=== PATIENT | female | born 1950 | race African-American/Black ===

== ENCOUNTER 2020-02-29 12:54 | Inpatient (IN) | payer MEDICARE, MEDICAID ==
[~2020-02-29] VITALS: Ht 157.5 cm; Wt 67.3 kg
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
[2020-02-29 13:10] VITALS: BP 123/58
--- NOTE | 2020-02-29 13:29 | Emergency Room Report ---
History of Present Illness General Chief Complaint: Abnormal Labs Source: Patient Present Illness HPI 69-year-old -[place] female with past medical history of COPD not on home O2 referred by PMD Dr. Martinez ([phone]) for abnormal labs. Is complaining of generalized weakness. Patient is a poor historian but she states that she was told by her doctor that she had a high potassium and a high sodium. She has never experienced these electrolyte abnormalities in the past. She reports muscle cramping and fatigue. Denies chest pain, palpitations, shortness of breath, hemoptysis, nausea, vomiting, diarrhea, dyspnea on exertion , fever or other symptoms. She states she has a chronic COPD cough and has 1 today. It is dry. The patient's symptoms were gradual onset, severity was moderate, duration since 2 days. Quality: Fatigue Past medical history: COPD Past surgical history: Denies Smokin cigarette/day Alcohol use: Occasional Drug use: Denies Review of systems: CONST: No fevers or chills, No night sweats PULMONARY: No productive cough, No shortness of breath CARDIAC: No chest pain, No palpitations GI: No vomiting, No diarrhea , No melena_or_BRBPR : No dysuria, No hematuria, No discharge NEURO: No new_focal_weakness_or_numbness, No confusion, No vision changes 14 point Review of Systems is otherwise negative except per HPI Physical Exam: GENERAL: Awake_alert_ nontoxic, no acute distress Spo2 98% on RA -normal EYES: Extraocular muscles are intact. Conjunctivae clear. Lids without swelling ENT: External nose and ear normal_in_appearance. Oropharynx clear. Head_ atraumatic, Moist_oral_mucosa NECK: No JVD. No meningismus. No thyromegaly. Supple. Trachea midline RESP: Normal respiratory effort. Symmetric rise. No stridor. Clear_to_ auscultation_No_rales_No_wheezes CARDIAC: Regular rate and regular rhytm. No_significant pedal edema. ABDOMEN: Soft. Nondistended. Nontender_No_rebound_or_guarding. MSK: Normal muscle tone, without rigidity. Extremities without asymmetric deformity or swelling. SKIN: Warm and dry. No visible cyanosis or pallor NEUROLOGIC: Alert, oriented x3. Motor_and_sensation_grossly_intact. No truncal ataxia. Gait_normal Psych: Normal mood and affect, normal judgment and insight - COORDINATION OF CARE Case was discussed with: Patient , Patient's Physician Any labs and imaging that were ordered were interpreted as part of the medical decision making: Medical Decision Making/Plan: Initial Assessment: Differential diagnosis includes Hyperkalemia, arrhythmia, acidosis, fluid overload, uremia, among others. I paged Dr Martinez to discuss case with him directly since patient is a poor historian. He states that patient has had ESTEBAN and hyperkalemia on recent outpatient laboratory studies. States he would like to admit the patient for further work- up. The patient feels generally weak but has no focal neurologic deficits, abnormal muscle tone, hypo/hyperreflexia, or fatigability. No evidence of stroke, spinal cord emergency, neuromuscular junction disorder, or multiple sclerosis at this time. Labs show no significant abnormalities. The patient appears well hydrated and has normal vitals, no evidence of significant dehydration / hypovolemia at this time. I spoke with Dr. Martinez, and reviewed the patients presentation, workup, results , and treatment. Dr Lopez paged to Dr Martinez for neuro follow up. Pt has no focal deficit or CVA symptomatology. They will admit the patient for further care and evaluation, and assume care of the patient at this time. Allergies: Coded Allergies: CODEINE (Verified Allergy, Unknown, 02/29/20) COVID-19 Screening Contact w/high risk pt: No Experienced COVID-19 symptoms?: No COVID-19 Testing performed ZOOKEEPER: No Patient History Last Menstrual Period: na Nursing Documentation-[facility] Past Medical History: No History, Except For Hx Hypertension: Yes Physical Exam Vital Signs Date Time Temp Pulse Resp B/P (MAP) Pulse Ox O2 Delivery O2 Flow Rate FiO2 02/29/20 13:01 97.5 91 17 125/50 (75) 97 Room Air Sp02 EP Interpretation: reviewed, normal Medical Decision Making Diagnostic Impression: Primary Impression: Weakness Additional Impression: COPD (chronic obstructive pulmonary disease) EKG Diagnostic Results PA Scribe Text 12-lead EKG (interpreted by me) Time: 1335 Indication: Rhythm analysis Tracing visualized and Interpreted by me. Rhythm: Normal sinus rhythm Rate: 74 bpm QTc: 408 Morphology: No_significant_ST_elevations_or_depressions, No STEMI Impression: Normal_sinus_rhythm_without_significant_abnormality T wave inversions in lead V4, V5, V6, nonspecific ST changes in lead V2 and V3 but no STEMI Rhythm Strip Diag. Results Rhythm Strip Time: 13:26 EP Interpretation: yes Rhythm: NSR, no PVC's, no ectopy Chest X-Ray Diagnostic Results Chest X-Ray Diagnostic Results : MARGUERITE Frankel Text XRAY Chest 1v Indication: Cough Technique: One view of the chest Findings: There are minimal atelectatic changes at both lung bases. Lungs and pleural spaces are clear otherwise. Heart size is normal. Impression: No acute process Read by Me Last Vital Signs Date Time Temp Pulse Resp B/P (MAP) Pulse Ox O2 Delivery O2 Flow Rate FiO2 02/29/20 13:10 97.9 81 18 123/58 98 Room Air Disposition: ADMITTED INPATIENT Admit Decision Time: 13:41 Condition: Stable Laila Johnson D.O. Feb 29, 2020 13:29
--- NOTE | 2020-02-29 13:47 | NUR ---
ED Nurse Note: xray @ bedside
[2020-02-29 13:51] LABS: BASOPHILS % (AUTO) 2.1 % (0.0-2.0); EOSINOPHILS % (AUTO) 2.7 % (0.0-3.0); HEMATOCRIT 44.8 % (37.0-47.0); HEMOGLOBIN 14.1 G/DL (12.0-16.0); LYMPHOCYTES % (AUTO) 46.4 % (20.0-45.0); MEAN CORPUSCULAR VOLUME 84 FL (80-99); MONOCYTES % (AUTO) 10.8 % (1.0-10.0); PLATELET COUNT 189 K/UL (150-450); RED BLOOD COUNT 5.32 M/UL (4.20-5.40); RED CELL DISTRIBUTION WIDTH 12.4 % (11.6-14.8); WHITE BLOOD COUNT 4.6 K/UL (4.8-10.8)
--- NOTE | 2020-02-29 13:59 | NUR ---
ED Nurse urine sent to lab
--- NOTE | 2020-02-29 14:00 | NUR ---
ED Nurse Note: Dr. Martinez @ bedside
[2020-02-29 14:04] LABS: ANION GAP 7 mmol/L (5-15); BLOOD UREA NITROGEN 14 mg/dL (7-18); CALCIUM 9.5 MG/DL (8.5-10.1); CARBON DIOXIDE 30 MMOL/L (21-32); CHLORIDE 105 MMOL/L (98-107); POTASSIUM 4.3 MMOL/L (3.5-5.1); SODIUM 142 MMOL/L (136-145)
[2020-02-29 14:09] LABS: ALANINE AMINOTRANSFERASE 29 U/L (12-78); ALBUMIN 3.7 G/DL (3.4-5.0); ALBUMIN/GLOBULIN RATIO 1.2 (1.0-2.7); ALKALINE PHOSPHATASE 44 U/L (46-116); ASPARTATE AMINO TRANSFERASE 27 U/L (15-37); BILIRUBIN,TOTAL 0.4 MG/DL (0.2-1.0)
--- NOTE | 2020-02-29 14:10 | Diagnostic Imaging Report ---
Indication: Cough Technique: One view of the chest Comparison: none Findings: There are minimal atelectatic changes at both lung bases. Lungs and pleural spaces are clear otherwise. Heart size is normal. Impression: No acute process
[2020-02-29 14:13] LABS: APPEARANCE,URINE CLEAR; BILIRUBIN, URINE NEGATIVE (NEGATIVE); COLOR,URINE PALE YELLOW; GLUCOSE, URINE (UA) NEGATIVE (NEGATIVE); KETONES,URINE NEGATIVE (NEGATIVE); LEUKOCYTE ESTERASE ,URINE NEGATIVE (NEGATIVE); NITRITE,URINE NEGATIVE (NEGATIVE); PH,URINE 6 (4.5-8.0); PROTEIN,URINE NEGATIVE (NEGATIVE); UROBILINOGEN,URINE NORMAL MG/DL (0.0-1.0)
[2020-02-29] MEDS ORDERED: D5 1/2NS 1000ml IV ONE (14:13)
--- NOTE | 2020-02-29 14:16 | NUR ---
Note loyd in EDM - 02/29/20 at 1619 by HÉCTOR ED Nurse Note: pt transferred safely to 2E on the monitor. Pt SR, in stable condition. All belongings sent with patient.
[2020-02-29] MEDS: Morphine Sulfate 2mg/ml Inj(IV/IM USE ONLY) IVP PRN ×2 (15:40→20:11)
--- NOTE | 2020-02-29 15:42 | NUR ---
ED Nurse Note: telephone order received frmo Dr. Martinez for morphine 2mg IVP q4hr prn for pain. Order noted and carried out. Per Dr. Martinez, have admitting RN contact Dr. Jain for admitting orders.
--- NOTE | 2020-02-29 15:44 | History and Physical Report ---
DATE OF ADMISSION: 02/29/2020 TIME SEEN: Approximate time is 2 p.m. CHIEF COMPLAINT: 1. Back pain and leg pain. 2. Abnormal renal function. BRIEF HISTORY: This is a 69-year-old female who comes to my office once in a month or so complaining of back pain. Actually back pain is going on for 6 months, leg pain worse for the past week. Home arvind did her labs which showed potassium is elevated. The patient came to [place], being seen for above. Currently in the ER daniel, no complaint otherwise. REVIEW OF SYSTEMS: No chest pain. No shortness of breath. No nausea, vomiting, or diarrhea. PAST MEDICAL HISTORY: Includes hypertension, COPD, ETSEBAN, back pain. PAST SURGICAL HISTORY: Back surgery in 1989. MEDICATIONS: Just IV fluids for now. ALLERGIES: Codeine. SOCIAL HISTORY: Positive smoking. Occasional alcohol. No intravenous drug abuse. Positive marijuana. FAMILY HISTORY: Noncontributory. PHYSICAL EXAMINATION: GENERAL: Calm in bed, oriented x3, no acute distress. VITAL SIGNS: Temperature 97, pulse 81, respirations 18, blood pressure 123/58. CARDIOVASCULAR: No murmur. LUNGS: Distant and clear. ABDOMEN: Bowel sound positive. Nontender. Nondistended. EXTREMITIES: No cyanosis or edema. NEUROLOGIC: The patient moves all extremities, slightly weak. LABORATORY DATA: Labs at this time show CBC white count 4.6, otherwise CBC is normal. BMP is pending. INR is pending. ASSESSMENT: 1. Back pain and leg pain. 2. Hypertension. 3. COPD. 4. ESTEBAN. PLAN: 1. We will check labs 2. Resume home medications. 3. Blood pressure and pain control. 4. PT and OT. 5. Dietary followup. 6. We will continue to follow the patient. 7. ER doctor to notify me of lab results. Yandel Martinez D.O. DR: Scott JOB#: [id number] CC:
--- NOTE | 2020-02-29 15:48 | NUR ---
ED Nurse Note: report given DOM Saldaña on 2E.
[2020-02-29 16:00] VITALS: BP 144/79
--- NOTE | 2020-02-29 16:16 | NUR ---
ED Nurse Note: pt transferred safely to 2E on the monitor. Pt SR, in stable condition. All belongings sent with patient.
--- NOTE | 2020-02-29 16:59 | NUR ---
NEW ADMISSION: Pt arrived to the floor at [address] [facility] Martinez and Dx; Gen weakness. Pt ambulated from [facility] to the bed with slight difficulty. telemetry monitor was placed on pt and is showing as SR. Pt is AOx4 and able to follow command. Pt is on room air with O2 sat 100% respirations are even and unlabored, no sign of sob or resp distress. Pt has IV to left FA 20g running ordered IVF D51/2NS@50/hr. Admitting orders recvd from Dr Martinez, called Dr Jain to notify him neuro consult has been ordered and pending. Bed in lowest locked position, call light within reach, will continue with plan of care
[2020-02-29] MEDS: D5 1/2NS 1,000 ML IV SCH (17:00)
[2020-02-29] MEDS ORDERED: Gadavist 7.5mMol/7.5ml vial IV PRN ×2 (17:45)
[2020-02-29 20:00] VITALS: BP 148/75
--- NOTE | 2020-02-29 20:00 | NUR ---
NURSE NOTES: Important Events on Shift:Upcoming MRI spine Patient Status: Stable, AxOx4 Diet: Regular Pending Orders: None Pending Results/Labs:CBC, CRP, BMP Pending MD notification: None Latest Vital Signs: Temperature 98.0 , Pulse 60 , B/P 148 /75 , Respiratory Rate 18 , O2 SAT 98 , Room Air, O2 Flow Rate . Vital Sign Comment: stable EKG Rhythm: SR w/ BBBs, A-paced Rhythm change?: N MD Notified?: - MD Response: Latest Hernandez Fall Score: 20 Fall Risk: Low Risk Safety Measures: Call light Within Reach, Bed Alarm Zone 2, Side Rails Side Rails x2, Bed position Low and Locked. Fall Precautions: Yellow Socks Yes Yellow Gown YES Door Sign YES Received report from Piper Aceves RN. Pt c/o 02/11 back pain, otherwise VS WNL. Morphine 2mg given per MD order, will monitor for effectiveness. Will continue plan of care and close monitoring.
[2020-03-01] VITALS: BP 131/70
[2020-03-01] MEDS: Morphine Sulfate 2mg/ml Inj(IV/IM USE ONLY) IVP PRN ×5 (01:13→20:57)
[2020-03-01 04:00] VITALS: BP 136/60
[2020-03-01 06:39] LABS: BASOPHILS % (AUTO) 1.2 % (0.0-2.0); EOSINOPHILS % (AUTO) 4.1 % (0.0-3.0); HEMATOCRIT 41.5 % (37.0-47.0); HEMOGLOBIN 13.4 G/DL (12.0-16.0); MEAN CORPUSCULAR VOLUME 84 FL (80-99); MONOCYTES % (AUTO) 11.8 % (1.0-10.0); NEUTROPHILS % (AUTO) 28.9 % (45.0-75.0); PLATELET COUNT 180 K/UL (150-450); RED BLOOD COUNT 4.95 M/UL (4.20-5.40); RED CELL DISTRIBUTION WIDTH 12.2 % (11.6-14.8); WHITE BLOOD COUNT 3.9 K/UL (4.8-10.8)
--- NOTE | 2020-03-01 06:52 | NUR ---
NURSE HAND-OFF REPORT: Important Events on Shift: Upcoming MRI spine.Pt c/o 02/11 low back pain; Morphine 2mg IVP given x 3, last dose: 0545. Patient Status: stable throughout shift. Diet: regular Pending Orders: none Pending Results/Labs: CBC, CRP, BMP Pending MD notification: none Latest Vital Signs: Temperature 98.1 , Pulse 73 , B/P 136 /60 , Respiratory Rate 18 , O2 SAT 95 , Room Air, O2 Flow Rate . Vital Sign Comment: stable throughout shift. EKG Rhythm: Sinus Rhythm Rhythm change?: N MD Notified?: - MD Response: Latest Hernandez Fall Score: 20 Fall Risk: Low Risk Safety Measures: Call light Within Reach, Bed Alarm Zone 2, Side Rails Side Rails x2, Bed position Low and Locked. Fall Precautions: Yellow Socks YES Yellow Gown YES Door Sign YES Report to be given to Lidia Guerrero RN.
[2020-03-01 07:19] LABS: ANION GAP 4 mmol/L (5-15); BLOOD UREA NITROGEN 10 mg/dL (7-18); CALCIUM 9.3 MG/DL (8.5-10.1); CARBON DIOXIDE 31 MMOL/L (21-32); CHLORIDE 108 MMOL/L (98-107); CREATININE 0.9 MG/DL (0.55-1.30); POTASSIUM 5.1 MMOL/L (3.5-5.1); SODIUM 143 MMOL/L (136-145)
--- NOTE | 2020-03-01 07:36 | NUR ---
NURSE NOTES: Report received from Cynthia FERNANDES. Pt in bed reading. Bed low and locked. Complains of general body pain especially in legs and back. Next morphine dose due at 8:45 will supply if needed. Whiteboard updated. call light within reach.
[2020-03-01 08:00] VITALS: BP 140/74
--- NOTE | 2020-03-01 09:10 | NUR ---
CASE MANAGEMENT: INITIAL REVIEW 69 YO F PRESENTED TO ED FROM MDs OFFICE CC: BACK PAIN AND GEN WEAKNESS PMHx: COPD SI:GEN WEAKNESS VS: T 97.9 HR 81 RR 18 B/P 123/58 SATS 98% ON RA LABS: WBC 4.6 ALP 44 IS: CXR Impression: No acute process PATIENT ADMITTED TO TELE 02/29/2020 @ 1412 DCP: HOME W/ HH PLAN OF CARE: Blood pressure and pain control. PT and OT.
--- NOTE | 2020-03-01 09:55 | General Progress Note ---
Assessment/Plan Problem List: (1) HTN (hypertension) ICD Codes: I10 - Essential (primary) hypertension SNOMED: 37071692 (2) Leukopenia ICD Codes: D72.819 - Decreased white blood cell count, unspecified SNOMED: 79317395, 578413557 (3) COPD (chronic obstructive pulmonary disease) ICD Codes: J44.9 - Chronic obstructive pulmonary disease, unspecified SNOMED: 25947404 (4) Weakness ICD Codes: R53.1 - Weakness SNOMED: 71651394 Status: stable, progressing Assessment/Plan: pt diet pain control neuro heme eval cbc bmp am Subjective Constitutional: Reports: weakness Allergies: Coded Allergies: CODEINE (Verified Allergy, Unknown, 02/29/20) All Systems: reviewed and negative except above Subjective calm in bed Objective Last 24 Hour Vital Signs Date Time Temp Pulse Resp B/P (MAP) Pulse Ox O2 Delivery O2 Flow Rate FiO2 03/01/20 08:00 97.7 71 19 140/74 (96) 96 03/01/20 08:00 59 03/01/20 04:00 98.1 73 18 136/60 (85) 95 03/01/20 04:00 63 03/01/20 01:43 97.9 03/01/20 00:00 97.9 64 18 131/70 (90) 96 02/29/20 20:46 Room Air 02/29/20 20:00 60 02/29/20 20:00 98.0 60 18 148/75 (99) 98 02/29/20 16:41 Room Air 02/29/20 16:16 98.3 71 18 129/63 99 Room Air 02/29/20 16:00 65 02/29/20 16:00 96.3 71 20 144/79 (100) 02/29/20 13:10 97.9 81 18 123/58 98 Room Air 02/29/20 13:01 97.5 91 17 125/50 (75) 97 Room Air Intake and Output 02/29/20 03/01/20 19:00 07:00 Intake Total 380 ml 350 ml Output Total 2600 ml Balance -2220 ml 350 ml Intake Oral 280 ml IV Total 100 ml 350 ml Output Urine Total 2600 ml # Voids 8 3 Laboratory Tests 02/29/20 13:35: White Blood Count 4.6L, Red Blood Count 5.32, Hemoglobin 14.1, Hematocrit 44.8, Mean Corpuscular Volume 84, Mean Corpuscular Hemoglobin 26.5L, Mean Corpuscular Hemoglobin Concent 31.5L, Red Cell Distribution Width 12.4, Platelet Count 189, Mean Platelet Volume 7.1, Neutrophils (%) (Auto) 38.0L, Lymphocytes (%) (Auto) 46.4H, Monocytes (%) (Auto) 10.8H, Eosinophils (%) (Auto) 2.7, Basophils (%) ( Auto) 2.1H, Erythrocyte Sedimentation Rate 25, Prothrombin Time 10.7, Prothromb Time International Ratio 1.0, Activated Partial Thromboplast Time 25, Sodium Level 142, Potassium Level 4.3, Chloride Level 105, Carbon Dioxide Level 30, Anion Gap 7, Blood Urea Nitrogen 14, Creatinine 1.0, Estimat Glomerular Filtration Rate > 60, Glucose Level 93, Calcium Level 9.5, Total Bilirubin 0.4, Aspartate Amino Transf (AST/SGOT) 27, Alanine Aminotransferase (ALT/SGPT) 29, Alkaline Phosphatase 44L, Troponin I 0.000, C-Reactive Protein, Quantitative < 0.4, Total Protein 6.9, Albumin 3.7, Globulin 3.2, Albumin/Globulin Ratio 1.2, Lipase 132 02/29/20 14:00: Urine Color Pale yellow, Urine Appearance Clear, Urine pH 6, Urine Specific Emerson 1.010, Urine Protein Negative, Urine Glucose (UA) Negative, Urine Ketones Negative, Urine Blood Negative, Urine Nitrite Negative, Urine Bilirubin Negative, Urine Urobilinogen Normal, Urine Leukocyte Esterase Negative 03/01/20 05:30: White Blood Count 3.9L, Red Blood Count 4.95, Hemoglobin 13.4, Hematocrit 41.5, Mean Corpuscular Volume 84, Mean Corpuscular Hemoglobin 27.1, Mean Corpuscular Hemoglobin Concent 32.3, Red Cell Distribution Width 12.2, Platelet Count 180, Mean Platelet Volume 6.8, Neutrophils (%) (Auto) 28.9L, Lymphocytes (%) (Auto) 54.0H, Monocytes (%) (Auto) 11.8H, Eosinophils (%) (Auto) 4.1H, Basophils (%) ( Auto) 1.2, Sodium Level 143, Potassium Level 5.1, Chloride Level 108H, Carbon Dioxide Level 31, Anion Gap 4L, Blood Urea Nitrogen 10, Creatinine 0.9, Estimat Glomerular Filtration Rate > 60, Glucose Level 91, Calcium Level 9.3 Height (Feet): 5 Height (Inches): 2.00 Weight (Pounds): 142 General Appearance: alert EENT: normal ENT inspection Neck: normal alignment Cardiovascular: normal peripheral pulses, normal rate, regular rhythm Respiratory/Chest: chest wall non-tender, lungs clear, normal breath sounds Abdomen: normal bowel sounds, non tender, soft Extremities: normal inspection Edema: no edema noted Arm (L), no edema noted Arm (R), no edema noted Leg (L), no edema noted Leg (R), no edema noted Pedal (L), no edema noted Pedal (R), no edema noted Generalized Neurologic: motor weakness Skin: normal pigmentation, warm/dry Yandel Martinez DO Mar 01, 2020 09:55
--- NOTE | 2020-03-01 10:30 | NUR ---
NURSE NOTES: Pt came back from MRI, tele monitor placed, IV fluids restarted. Morphine reassessment done now since she was off unit at 9:10.
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
[2020-03-01 12:00] VITALS: BP 124/62
[2020-03-01] MEDS: D5 1/2NS 1,000 ML IV SCH (13:17)
--- NOTE | 2020-03-01 13:49 | Consultation ---
History of Present Illness General Chief Complaint: Abnormal Labs Present Illness Allergies: Coded Allergies: CODEINE (Verified Allergy, Unknown, 02/29/20) Patient History Healthcare decision maker N Resuscitation status Advanced Directive on File Physical Exam Last 24 Hour Vital Signs Date Time Temp Pulse Resp B/P (MAP) Pulse Ox O2 Delivery O2 Flow Rate FiO2 03/01/20 13:17 96.6 03/01/20 12:00 96.6 64 18 124/62 (82) 96 03/01/20 12:00 74 03/01/20 09:00 Room Air 03/01/20 08:00 97.7 71 19 140/74 (96) 96 03/01/20 08:00 59 03/01/20 04:00 98.1 73 18 136/60 (85) 95 03/01/20 04:00 63 03/01/20 00:00 97.9 64 18 131/70 (90) 96 02/29/20 20:46 Room Air 02/29/20 20:00 60 02/29/20 20:00 98.0 60 18 148/75 (99) 98 02/29/20 16:41 Room Air 02/29/20 16:16 98.3 71 18 129/63 99 Room Air 02/29/20 16:00 65 02/29/20 16:00 96.3 71 20 144/79 (100) Intake and Output 02/29/20 03/01/20 19:00 07:00 Intake Total 380 ml 350 ml Output Total 2600 ml Balance -2220 ml 350 ml Intake Oral 280 ml IV Total 100 ml 350 ml Output Urine Total 2600 ml # Voids 8 3 Laboratory Tests Test 02/29/20 14:00 03/01/20 05:30 Urine Color Pale yellow Urine Appearance Clear Urine pH 6 (4.5-8.0) Urine Specific [place] 1.010 (1.005-1.035) Urine Protein Negative (NEGATIVE) Urine Glucose (UA) Negative (NEGATIVE) Urine Ketones Negative (NEGATIVE) Urine Blood Negative (NEGATIVE) Urine Nitrite Negative (NEGATIVE) Urine Bilirubin Negative (NEGATIVE) Urine Urobilinogen Normal MG/DL (0.0-1.0) Urine Leukocyte Esterase Negative (NEGATIVE) White Blood Count 3.9 K/UL (4.8-10.8) L Red Blood Count 4.95 M/UL (4.20-5.40) Hemoglobin 13.4 G/DL (12.0-16.0) Hematocrit 41.5 % (37.0-47.0) Mean Corpuscular Volume 84 FL (80-99) Mean Corpuscular Hemoglobin 27.1 PG (27.0-31.0) Mean Corpuscular Hemoglobin Concent 32.3 G/DL (32.0-36.0) Red Cell Distribution Width 12.2 % (11.6-14.8) Platelet Count 180 K/UL (150-450) Mean Platelet Volume 6.8 FL (6.5-10.1) Neutrophils (%) (Auto) 28.9 % (45.0-75.0) L Lymphocytes (%) (Auto) 54.0 % (20.0-45.0) H Monocytes (%) (Auto) 11.8 % (1.0-10.0) H Eosinophils (%) (Auto) 4.1 % (0.0-3.0) H Basophils (%) (Auto) 1.2 % (0.0-2.0) Sodium Level 143 MMOL/L (136-145) Potassium Level 5.1 MMOL/L (3.5-5.1) Chloride Level 108 MMOL/L (98-107) H Carbon Dioxide Level 31 MMOL/L (21-32) Anion Gap 4 mmol/L (5-15) L Blood Urea Nitrogen 10 mg/dL (7-18) Creatinine 0.9 MG/DL (0.55-1.30) Estimat Glomerular Filtration Rate > 60 mL/min (>60) Glucose Level 91 MG/DL (74-106) Calcium Level 9.3 MG/DL (8.5-10.1) Hepatitis A IgM Antibody Pending Hepatitis B Surface Antigen Pending Hepatitis B Core IgM Antibody Pending Hepatitis C Antibody Pending HIV (1&2) Antibody Rapid Negative (NEGATIVE) Height (Feet): 5 Height (Inches): 2.00 Weight (Pounds): 142 Medications Current Medications Medications (Trade) Dose Ordered Sig/Torrie Route PRN Reason Start Time Stop Time Status Last Admin Dose Admin Dextrose/Sodium Chloride 1,000 ml @ 50 mls/hr Q20H IV 02/29/20 17:00 03/30/20 16:59 03/01/20 13:17 Gadobutrol (Gadavist) 7.5 mmol NOW PRN IV Radiology Procedure 02/29/20 17:45 03/04/20 17:42 Gadobutrol (Gadavist) 7.5 mmol NOW PRN IV Radiology Procedure 02/29/20 17:45 03/04/20 17:42 Morphine Sulfate (Morphine Sulfate) 2 mg Q4H PRN IVP For Pain 02/29/20 15:30 03/07/20 15:29 03/01/20 12:34 Assessment/Plan Assessment/Plan: Hematology Consultaiton TY HERNANDEZ: Yandel Martinez C: Leukopenia eval DOS 03/01/20 ID 69-year-old -F[place] female with past medical history of COPD not on home O2 referred by PMD Dr. Martinez ([phone]) for abnormal labs. Is complaining of generalized weakness. Patient is a poor historian but she states that she was told by her doctor that she had a high potassium and a high sodium. She has never experienced these electrolyte abnormalities in the past. She reports muscle cramping and fatigue. Denies chest pain, palpitations, shortness of breath, hemoptysis, nausea, vomiting, diarrhea, dyspnea on exertion , fever or other symptoms. She states she has a chronic COPD cough and has 1 today. It is dry. The patient's symptoms were gradual onset, severity was moderate, duration since 2 days. Has been seen by neurology, recs noted, to get mri of spine and heme consulted for low wbc Past medical history: COPD Past surgical history: Denies Smokin cigarette/day Alcohol use: Occasional Drug use: Denies Review of systems: CONST: No fevers or chills, No night sweats PULMONARY: No productive cough, No shortness of breath CARDIAC: No chest pain, No palpitations GI: No vomiting, No diarrhea , No melena_or_BRBPR : No dysuria, No hematuria, No discharge NEURO: No new_focal_weakness_or_numbness, No confusion, No vision changes 14 point Review of Systems is otherwise negative except per HPI Physical Exam: Vitals: reviewed General: NAD HEENT: nc, at Neck: supple Chest: clear breath sounds bilaterally Cardiovascular: RRR, no s3, s4 Abdomen: soft, nontender, nd Extremities: no cce, normal range of motion Neuro: alert and oriented Labs have been reviewed Imaging is noted Assessment and recs # Leukopenia -- multiple etiologies could be related to underlying liver disease , medication-induced, infection versus viral syndrome may be due to fact patient is , benign congentital neutropenia --> peripheral smear has been ordered and does not show significant abnormalities --> Medications have been reviewed --> Continue to monitor for improvement, trend cbc --> Hep panel and HIV have been ordered --> US abd ordered to r/o cirrhosis and hepatosplenomegaly --> reverse isolation if ANC is <2000 --> Give neupogen if ANC <1000 --< wbc 4.8-->3.9 # Generalized wealness with no focal neurologic deficits, abnormal muscle tone, hypo/hyperreflexia, or fatigability. No evidence of stroke, spinal cord emergency, neuromuscular junction disorder, or multiple sclerosis at this time. --> mri of the thoracic spine --> as per neuro --> pt/ot # Dehydration --> goal of euvolemia --> as per renal # HL --> consider statin and asa # HTN --> sbp goal <140 # Dvt ppx ambulation The timing of this note does not necessarily reflect the time of the patient was seen. Greatly appreciate consultation. Slick Herrera MD Mar 01, 2020 13:49
[2020-03-01 16:00] VITALS: BP 151/63
--- NOTE | 2020-03-01 16:30 | Diagnostic Imaging Report ---
Indication: Technique: Sagittal T1 fast spin echo, sagittal T2 fast echo, sagittal STIR, axial T1 axial T2 fast spin echo images were obtained through the thoracic spine. Pre and postcontrast axial and sagittal T1 fat-saturated images were also obtained Comparison: none Findings: Bony alignment is normal. Vertebral body heights are preserved. The disc spaces are preserved. The vertebral marrow signal is normal. Intrinsic cord signal is normal. No significant disc bulge or protrusion, spinal stenosis, or neural foraminal stenosis. No abnormal contrast enhancement is evident. Incidentally noted are bilateral renal cysts. Impression: Negative thoracic spine Incidental finding of bilateral renal cysts
--- NOTE | 2020-03-01 16:41 | Diagnostic Imaging Report ---
Indication: Reason For Exam: BK PAIN Technique: Sagittal T1, sagittal T2 PROPELLER, sagittal STIR PROPELLER, axial T2 FRFSE, axial T1, axial T2 propeller disc cut, axial and sagittal sagittal T1 fast spin echo fat saturated precontrast and postcontrast images obtained of the lumbar Comparison: none Findings: There is transitional lumbosacral anatomy. Based on the level counting image from thoracic MRI performed at the same time, the transitional segment represents L5. Posterior fusion hardware is seen bridging L3 and L4. This throws off susceptibly artifact which partially obscures these segments. There is anterior offset of L2 on L3. The remaining bony alignment is normal. The vertebral body heights are preserved. The vertebral marrow signal is normal. The conus medullaris terminates at the L1-2 level. At L2-3, there is degenerative disc narrowing. Generalized circumferential annular bulge, as well as posterior broad-based disc protrusion with a high intensity zone. This in combination with marked ligamentum flavum hypertrophy and facet hypertrophy results in severe narrowing of the spinal canal at this level, minimal AP dimension of the spinal canal 4 mm. There is moderate narrowing of the bilateral neural foramina. At L3-4, there is degenerative disc narrowing. There is what is likely a disc spacer present. No significant disc bulge or protrusion, or spinal stenosis. The neural foramina are not well visualized due to susceptibility artifact. At L4-5, there is very mild circumferential annular bulge, which does not significant compromise the spinal canal, may result in slight narrowing of the neural foramina, particularly on the left. The disc space is preserved. At L5-S1, there is narrowing of the disc. This may be degenerative or may be related to the transitional nature of the L5 segment. No significant disc bulge or protrusion, spinal stenosis, or neural foraminal stenosis. No unusual contrast enhancement is demonstrated. The included extra spinal soft tissues demonstrate bilateral renal cysts. Impression: Evidence of severe spinal stenosis at L2-3. Evidence of posterior fusion surgery as well as a disc spacer bridging L3 and L4 Multilevel degenerative changes, as detailed on a level by level basis above.
--- NOTE | 2020-03-01 19:37 | NUR ---
HAND-OFF: Report given to Glenn FERNANDES. Endorsed that per Dr. Martinez pt should be admitted as inpatient and to add lipitor 40mg and lisinopril 10mg.
--- NOTE | 2020-03-01 19:37 | NUR ---
NURSE NOTES: Patient received from Ani RN. Patient in stable condition. No s/s of distress now and no c/o pain. Alert and oriented x4. Saturating well on room air. IV Site patent and intact on Left FA 20G running D5 1/2 NS @ 50mls/hr. Patient is able to ambulate by herself. Put in orders to admit as inpatient and to add Lisinopril 10mg daily and Lipitor 40mg daily. Bed in lowest position and locked. Call light and bedside table within reach. Will continue plan of care.
[2020-03-01 20:00] VITALS: BP 139/61
--- NOTE | 2020-03-01 21:00 | NUR ---
NURSE NOTES: Patient complaining of constipation, last bowel movement on the . Informed Attending MD and received orders, verified and carried out.
[2020-03-01] MEDS: Docusate 100mg cap ORAL SCH (22:13)
[2020-03-02] VITALS: BP 141/85
[2020-03-02] MEDS: Morphine Sulfate 2mg/ml Inj(IV/IM USE ONLY) IVP PRN ×5 (01:11→22:35)
[2020-03-02 04:00] VITALS: BP 154/71
--- NOTE | 2020-03-02 07:29 | NUR ---
NURSE NOTES: Received report from Clementine/RN, Observed patient awake, eating breakfast in bed. On room air, No acute distress/SOB noted. Able to make needs known, complaining of pain, will follow up with pain med. IV site patent and intact. Bed in low position and locked, Call light within reach, Encouraged to use call light when needed. Will continue plan of care.
--- NOTE | 2020-03-02 07:32 | NUR ---
NURSE HAND-OFF REPORT: Important Events on Shift:[Notified Doctor for laxative and received orders] Patient Status: [Stable] Diet: [Regular] Pending Orders: [] Pending Results/Labs:[] Pending MD notification:[] Latest Vital Signs: Temperature 97.7 , Pulse 58 , B/P 154 /71 , Respiratory Rate 18 , O2 SAT 98 , Room Air, O2 Flow Rate . Vital Sign Comment: [] EKG Rhythm: Sinus Rhythm Rhythm change?: N MD Notified?: N - MD Response: Latest Hernandez Fall Score: 20 Fall Risk: Low Risk Safety Measures: Call light Within Reach, Bed Alarm Zone 2, Side Rails Side Rails x2, Bed position Low and Locked. Fall Precautions: Patient Fall Education Report given to [Irasema RN].
[2020-03-02 07:54] LABS: BASOPHILS % (AUTO) 2.4 % (0.0-2.0); HEMATOCRIT 44.3 % (37.0-47.0); HEMOGLOBIN 14.4 G/DL (12.0-16.0); LYMPHOCYTES % (AUTO) 50.8 % (20.0-45.0); MEAN CORPUSCULAR VOLUME 84 FL (80-99); MONOCYTES % (AUTO) 10.2 % (1.0-10.0); NEUTROPHILS % (AUTO) 32.5 % (45.0-75.0); PLATELET COUNT 179 K/UL (150-450); RED BLOOD COUNT 5.28 M/UL (4.20-5.40); RED CELL DISTRIBUTION WIDTH 12.3 % (11.6-14.8); WHITE BLOOD COUNT 4.8 K/UL (4.8-10.8)
[2020-03-02 08:00] VITALS: BP 142/60
[2020-03-02 08:05] LABS: ANION GAP 5 mmol/L (5-15); BLOOD UREA NITROGEN 8 mg/dL (7-18); CALCIUM 9.5 MG/DL (8.5-10.1); CARBON DIOXIDE 33 MMOL/L (21-32); CHLORIDE 104 MMOL/L (98-107); CREATININE 0.9 MG/DL (0.55-1.30); POTASSIUM 4.7 MMOL/L (3.5-5.1); SODIUM 141 MMOL/L (136-145)
[2020-03-02] MEDS: Docusate 100mg cap ORAL SCH ×2 (08:43→17:42)
[2020-03-02] MEDS: D5 1/2NS 1,000 ML IV SCH (08:43)
[2020-03-02] MEDS: Lisinopril 10mg tab ORAL SCH (08:43)
--- NOTE | 2020-03-02 08:48 | General Progress Note ---
Assessment/Plan Problem List: (1) HTN (hypertension) ICD Codes: I10 - Essential (primary) hypertension SNOMED: 50658912 (2) Leukopenia ICD Codes: D72.819 - Decreased white blood cell count, unspecified SNOMED: 87286430, 472997059 (3) COPD (chronic obstructive pulmonary disease) ICD Codes: J44.9 - Chronic obstructive pulmonary disease, unspecified SNOMED: 56911505 (4) Weakness ICD Codes: R53.1 - Weakness SNOMED: 27794811 Status: stable, progressing Assessment/Plan: pt diet pain control neuro heme eval cbc bmp am Subjective Constitutional: Reports: weakness Allergies: Coded Allergies: CODEINE (Verified Allergy, Unknown, 02/29/20) All Systems: reviewed and negative except above Subjective calm in bed Objective Last 24 Hour Vital Signs Date Time Temp Pulse Resp B/P (MAP) Pulse Ox O2 Delivery O2 Flow Rate FiO2 03/02/20 08:43 142/60 03/02/20 04:00 97.7 58 18 154/71 (98) 98 03/02/20 04:00 58 03/02/20 00:00 58 03/02/20 00:00 97.7 60 18 141/85 (103) 99 03/01/20 21:00 Room Air 03/01/20 20:00 61 03/01/20 20:00 97.8 91 18 139/61 (87) 99 03/01/20 17:07 96.6 03/01/20 16:00 97.6 67 19 151/63 (92) 96 03/01/20 16:00 64 03/01/20 12:00 96.6 64 18 124/62 (82) 96 03/01/20 12:00 74 03/01/20 09:00 Room Air Intake and Output 03/01/20 03/02/20 19:00 07:00 Intake Total 490 ml Balance 490 ml Intake Oral 140 ml IV Total 350 ml # Voids 3 2 Laboratory Tests 03/02/20 07:20: White Blood Count 4.8, Red Blood Count 5.28, Hemoglobin 14.4, Hematocrit 44.3, Mean Corpuscular Volume 84, Mean Corpuscular Hemoglobin 27.3, Mean Corpuscular Hemoglobin Concent 32.5, Red Cell Distribution Width 12.3, Platelet Count 179, Mean Platelet Volume 6.7, Neutrophils (%) (Auto) 32.5L, Lymphocytes (%) (Auto) 50.8H, Monocytes (%) (Auto) 10.2H, Eosinophils (%) (Auto) 4.0H, Basophils (%) ( Auto) 2.4H, Sodium Level 141, Potassium Level 4.7, Chloride Level 104, Carbon Dioxide Level 33H, Anion Gap 5, Blood Urea Nitrogen 8, Creatinine 0.9, Estimat Glomerular Filtration Rate > 60, Glucose Level 89, Calcium Level 9.5 Height (Feet): 5 Height (Inches): 2.00 Weight (Pounds): 142 General Appearance: alert EENT: normal ENT inspection Neck: normal alignment Cardiovascular: normal peripheral pulses, normal rate, regular rhythm Respiratory/Chest: chest wall non-tender, lungs clear, normal breath sounds Abdomen: normal bowel sounds, non tender, soft Extremities: normal inspection Edema: no edema noted Arm (L), no edema noted Arm (R), no edema noted Leg (L), no edema noted Leg (R), no edema noted Pedal (L), no edema noted Pedal (R), no edema noted Generalized Neurologic: responsive, motor weakness Skin: normal pigmentation, warm/dry Yandel Martinez DO Mar 02, 2020 08:48
[2020-03-02 12:00] VITALS: BP 132/61
[2020-03-02] MEDS: Milk of Magnesia 30ml Ud ORAL PRN ×2 (13:08→22:35)
[2020-03-02 16:00] VITALS: BP 132/62
--- NOTE | 2020-03-02 19:37 | NUR ---
NURSE HAND-OFF REPORT: Important Events on Shift:Pain management Patient Status: stable Diet: regular Pending Orders: NA Pending Results/Labs:Morning Labs Pending MD notification:NA Latest Vital Signs: Temperature 97.9 , Pulse 73 , B/P 132 /62 , Respiratory Rate 16 , O2 SAT 100 , Room Air, O2 Flow Rate . Vital Sign Comment: Stables EKG Rhythm: Sinus Rhythm Rhythm change?: N MD Notified?: N - MD Response: Latest Hernandez Fall Score: 20 Fall Risk: Low Risk Safety Measures: Call light Within Reach, Bed Alarm Zone 2, Side Rails Side Rails x2, Bed position Low and Locked. Fall Precautions: Patient Fall Education Report given to Ken.
--- NOTE | 2020-03-02 19:40 | NUR ---
NURSE NOTES: Received report from Irasema /RN, Observed patient awake, alert and oriented, lying semi-jay's in bed. On room air, No acute distress/SOB noted. Able to make needs known, Denies pain at this time. IV site patent and intact. Bed in low position and locked, Call light within reach, Encouraged to use call light when needed. Will continue plan of care.
[2020-03-02 20:00] VITALS: BP 138/68
[2020-03-02] MEDS: Atorvastatin 20mg tab ORAL SCH (22:32)
[2020-03-03] VITALS: BP 145/76
[2020-03-03 04:00] VITALS: BP 140/70
[2020-03-03] MEDS: Morphine Sulfate 2mg/ml Inj(IV/IM USE ONLY) IVP PRN ×4 (05:11→20:47)
[2020-03-03] MEDS: D5 1/2NS 1,000 ML IV SCH ×2 (05:11→23:41)
--- NOTE | 2020-03-03 07:01 | NUR ---
NURSE NOTES: Received report from Lisbeth/RN, Observed patient awake, lying semi-jay's in bed. On room air, No acute distress/SOB noted. Able to make needs known, Digna pain at this time. IV site patent and intact. Bed in low position and locked, Call light within reach, Encouraged to use call light when needed. Will continue plan of care.
--- NOTE | 2020-03-03 07:24 | NUR ---
NURSE HAND-OFF REPORT: Important Events on Shift: Patient Status: Diet: Pending Orders: Pending Results/Labs: Latest Vital Signs: Temperature 98.1 , Pulse 60 , B/P 140 /70 , Respiratory Rate 17 , O2 SAT 100 , Room Air, O2 Flow Rate . EKG Rhythm: Sinus Bradycardia to SR Rhythm change?: N MD Notified?: N - Latest Hernandez Fall Score: 20 Fall Risk: Low Risk Safety Measures: Call light Within Reach, Bed Alarm Zone 2, Side Rails Side Rails x2, Bed position Low and Locked. Fall Precautions: Patient Fall Education Report given to .
--- NOTE | 2020-03-03 07:25 | NUR ---
NURSE HAND-OFF REPORT: Important Events on Shift: Patient Status: stable, received pain med at 0511 Diet: regular Pending Orders: cbc bmp Pending Results/Labs:cbc bmp Latest Vital Signs: Temperature 98.1 , Pulse 60 , B/P 140 /70 , Respiratory Rate 17 , O2 SAT 100 , Room Air, O2 Flow Rate . EKG Rhythm: Sinus Bradycardia to SR Rhythm change?: N MD Notified?: N - Latest Hernandez Fall Score: 20 Fall Risk: Low Risk Safety Measures: Call light Within Reach, Bed Alarm Zone 2, Side Rails Side Rails x2, Bed position Low and Locked. Fall Precautions: Patient Fall Education Report given to Irasema FERNANDES.
[2020-03-03 07:38] LABS: EOSINOPHILS % (AUTO) 4.2 % (0.0-3.0); HEMOGLOBIN 14.5 G/DL (12.0-16.0); LYMPHOCYTES % (AUTO) 48.6 % (20.0-45.0); MEAN CORPUSCULAR VOLUME 84 FL (80-99); MONOCYTES % (AUTO) 11.1 % (1.0-10.0); PLATELET COUNT 185 K/UL (150-450); RED BLOOD COUNT 5.37 M/UL (4.20-5.40); RED CELL DISTRIBUTION WIDTH 11.9 % (11.6-14.8); WHITE BLOOD COUNT 4.3 K/UL (4.8-10.8)
--- NOTE | 2020-03-03 07:38 | Hematology/Onc Progress Note ---
Assessment/Plan Assessment/Plan Assessment and recs # Leukopenia -- multiple etiologies could be related to underlying liver disease , medication-induced, infection versus viral syndrome may be due to fact patient is , benign congentital neutropenia also HEPATITIS C++ --> peripheral smear has been ordered and does not show significant abnormalities --> Medications have been reviewed --> Continue to monitor for improvement, trend cbc --> Hep panel and HIV have been ordered --> US abd ordered to r/o cirrhosis and hepatosplenomegaly --> reverse isolation if ANC is <2000 --> Give neupogen if ANC <1000 --< wbc 4.8-->3.9-->5 # Generalized wealness with no focal neurologic deficits, abnormal muscle tone, hypo/hyperreflexia, or fatigability. No evidence of stroke, spinal cord emergency, neuromuscular junction disorder, or multiple sclerosis at this time. --> mri of the thoracic spine --> as per neuro --> pt/ot # Dehydration --> goal of euvolemia --> as per renal # HL --> consider statin and asa # HTN --> sbp goal <140 # Dvt ppx ambulation The timing of this note does not necessarily reflect the time of the patient was seen. Greatly appreciate consultation. Subjective HEENT: Denies: no symptoms, eye pain, blurred vision, tearing, double vision, ear pain, ear discharge, nose pain, nose congestion, throat pain, throat swelling, mouth pain, mouth swelling, other Cardiovascular: Denies: no symptoms, chest pain, edema, irregular heart rate, lightheadedness, palpitations, syncope, other Respiratory: Denies: no symptoms, cough, shortness of breath, SOB with excertion, SOB at rest, sputum, wheezing, other Gastrointestinal/Abdominal: Denies: no symptoms, abdomen distended, abdominal pain, black stools, tarry stools, blood in stool, constipated, diarrhea, difficulty swallowing, nausea, poor appetite, poor fluid intake, rectal bleeding , vomiting, other Genitourinary: Denies: no symptoms, burning, discharge, frequency, flank pain, hematuria, incontinence, pain, urgency, other Endocrine: Denies: no symptoms, excessive sweating, flushing, intolerance to cold, intolerance to heat, increased hunger, increased thirst, increased urine, unexplained weight gain, unexplained weight loss, other Hematologic/Lymphatic: Denies: no symptoms, anemia, easy bleeding, easy bruising, adenopathy, other Allergies: Coded Allergies: CODEINE (Verified Allergy, Unknown, 02/29/20) Subjective 03/03 labs are noted, no bleeding, in semi-fowlers position no bleeding, cbc noted Objective Objective Current Medications Medications (Trade) Dose Ordered Sig/Torrie Route PRN Reason Start Time Stop Time Status Last Admin Dose Admin Atorvastatin Calcium (Lipitor) 40 mg BEDTIME ORAL 03/02/20 21:00 05/31/20 20:59 03/02/20 22:32 Bisacodyl (Dulcolax) 10 mg BIDPRN PRN RECTAL Constipation 03/01/20 22:00 05/30/20 21:59 Dextrose/Sodium Chloride 1,000 ml @ 50 mls/hr Q20H IV 02/29/20 17:00 03/30/20 16:59 03/03/20 05:11 Docusate Sodium (Colace) 100 mg TWICE A DAY ORAL 03/01/20 22:00 03/31/20 21:59 03/02/20 17:42 Gadobutrol (Gadavist) 7.5 mmol NOW PRN IV Radiology Procedure 02/29/20 17:45 03/04/20 17:42 Gadobutrol (Gadavist) 7.5 mmol NOW PRN IV Radiology Procedure 02/29/20 17:45 03/04/20 17:42 Lisinopril (ZestriL) 10 mg DAILY ORAL 03/02/20 09:00 04/01/20 08:59 03/02/20 08:43 Magnesium Hydroxide (Mom) 30 ml Q6HR PRN ORAL Constipation 03/02/20 13:00 04/01/20 12:59 03/02/20 22:35 Morphine Sulfate (Morphine Sulfate) 2 mg Q4H PRN IVP For Pain 02/29/20 15:30 03/07/20 15:29 03/03/20 05:11 Last 24 Hour Vital Signs Date Time Temp Pulse Resp B/P (MAP) Pulse Ox O2 Delivery O2 Flow Rate FiO2 03/03/20 05:41 98.1 03/03/20 04:00 59 03/03/20 04:00 97.9 60 17 140/70 (93) 100 03/03/20 00:00 57 03/03/20 00:00 98.1 57 16 145/76 (99) 100 03/02/20 21:00 Room Air 03/02/20 20:00 62 03/02/20 20:00 97.9 64 17 138/68 (91) 100 03/02/20 16:00 73 03/02/20 16:00 97.9 62 16 132/62 (85) 100 03/02/20 12:00 60 03/02/20 12:00 97.8 61 16 132/61 (84) 97 03/02/20 09:00 Room Air 03/02/20 08:43 142/60 03/02/20 08:00 98.1 63 17 142/60 (87) 98 03/02/20 08:00 62 03/02/20 04:00 97.7 58 18 154/71 (98) 98 03/02/20 04:00 58 03/02/20 00:00 58 03/02/20 00:00 97.7 60 18 141/85 (103) 99 03/01/20 21:00 Room Air 03/01/20 20:00 61 03/01/20 20:00 97.8 91 18 139/61 (87) 99 03/01/20 16:00 97.6 67 19 151/63 (92) 96 03/01/20 16:00 64 03/01/20 12:00 96.6 64 18 124/62 (82) 96 03/01/20 12:00 74 03/01/20 09:00 Room Air 03/01/20 08:00 97.7 71 19 140/74 (96) 96 03/01/20 08:00 59 Intake and Output 03/02/20 03/03/20 19:00 07:00 Intake Total 500 ml 550 ml Balance 500 ml 550 ml Intake Oral 500 ml IV Total 550 ml # Voids 2 2 Labs Test 02/29/20 13:35 02/29/20 14:00 03/01/20 05:30 03/02/20 07:20 White Blood Count 4.6 K/UL (4.8-10.8) 3.9 K/UL (4.8-10.8) 4.8 K/UL (4.8-10.8) Red Blood Count 5.32 M/UL (4.20-5.40) 4.95 M/UL (4.20-5.40) 5.28 M/UL (4.20-5.40) Hemoglobin 14.1 G/DL (12.0-16.0) 13.4 G/DL (12.0-16.0) 14.4 G/DL (12.0-16.0) Hematocrit 44.8 % (37.0-47.0) 41.5 % (37.0-47.0) 44.3 % (37.0-47.0) Mean Corpuscular Volume 84 FL (80-99) 84 FL (80-99) 84 FL (80-99) Mean Corpuscular Hemoglobin 26.5 PG (27.0-31.0) 27.1 PG (27.0-31.0) 27.3 PG (27.0-31.0) Mean Corpuscular Hemoglobin Concent 31.5 G/DL (32.0-36.0) 32.3 G/DL (32.0-36.0) 32.5 G/DL (32.0-36.0) Red Cell Distribution Width 12.4 % (11.6-14.8) 12.2 % (11.6-14.8) 12.3 % (11.6-14.8) Platelet Count 189 K/UL (150-450) 180 K/UL (150-450) 179 K/UL (150-450) Mean Platelet Volume 7.1 FL (6.5-10.1) 6.8 FL (6.5-10.1) 6.7 FL (6.5-10.1) Neutrophils (%) (Auto) 38.0 % (45.0-75.0) 28.9 % (45.0-75.0) 32.5 % (45.0-75.0) Lymphocytes (%) (Auto) 46.4 % (20.0-45.0) 54.0 % (20.0-45.0) 50.8 % (20.0-45.0) Monocytes (%) (Auto) 10.8 % (1.0-10.0) 11.8 % (1.0-10.0) 10.2 % (1.0-10.0) Eosinophils (%) (Auto) 2.7 % (0.0-3.0) 4.1 % (0.0-3.0) 4.0 % (0.0-3.0) Basophils (%) (Auto) 2.1 % (0.0-2.0) 1.2 % (0.0-2.0) 2.4 % (0.0-2.0) Erythrocyte Sedimentation Rate 25 MM/HR (0-30) Prothrombin Time 10.7 SEC (9.30-11.50) Prothromb Time International Ratio 1.0 (0.9-1.1) Activated Partial Thromboplast Time 25 SEC (23-33) Sodium Level 142 MMOL/L (136-145) 143 MMOL/L (136-145) 141 MMOL/L (136-145) Potassium Level 4.3 MMOL/L (3.5-5.1) 5.1 MMOL/L (3.5-5.1) 4.7 MMOL/L (3.5-5.1) Chloride Level 105 MMOL/L (98-107) 108 MMOL/L (98-107) 104 MMOL/L (98-107) Carbon Dioxide Level 30 MMOL/L (21-32) 31 MMOL/L (21-32) 33 MMOL/L (21-32) Anion Gap 7 mmol/L (5-15) 4 mmol/L (5-15) 5 mmol/L (5-15) Blood Urea Nitrogen 14 mg/dL (7-18) 10 mg/dL (7-18) 8 mg/dL (7-18) Creatinine 1.0 MG/DL (0.55-1.30) 0.9 MG/DL (0.55-1.30) 0.9 MG/DL (0.55-1.30) Estimat Glomerular Filtration Rate > 60 mL/min (>60) > 60 mL/min (>60) > 60 mL/min (>60) Glucose Level 93 MG/DL (74-106) 91 MG/DL (74-106) 89 MG/DL (74-106) Calcium Level 9.5 MG/DL (8.5-10.1) 9.3 MG/DL (8.5-10.1) 9.5 MG/DL (8.5-10.1) Total Bilirubin 0.4 MG/DL (0.2-1.0) Aspartate Amino Transf (AST/SGOT) 27 U/L (15-37) Alanine Aminotransferase (ALT/SGPT) 29 U/L (12-78) Alkaline Phosphatase 44 U/L (46-116) Troponin I 0.000 ng/mL (0.000-0.056) C-Reactive Protein, Quantitative < 0.4 mg/dL (0.00-0.90) Total Protein 6.9 G/DL (6.4-8.2) Albumin 3.7 G/DL (3.4-5.0) Globulin 3.2 g/dL Albumin/Globulin Ratio 1.2 (1.0-2.7) Lipase 132 U/L (73-393) Urine Color Pale yellow Urine Appearance Clear Urine pH 6 (4.5-8.0) Urine Specific [place] 1.010 (1.005-1.035) Urine Protein Negative (NEGATIVE) Urine Glucose (UA) Negative (NEGATIVE) Urine Ketones Negative (NEGATIVE) Urine Blood Negative (NEGATIVE) Urine Nitrite Negative (NEGATIVE) Urine Bilirubin Negative (NEGATIVE) Urine Urobilinogen Normal MG/DL (0.0-1.0) Urine Leukocyte Esterase Negative (NEGATIVE) Hepatitis A IgM Antibody Negative (Negative) Hepatitis B Surface Antigen Negative (Negative) Hepatitis B Core IgM Antibody Negative (Negative) Hepatitis C Antibody >11.0 s/co ratio HIV (1&2) Antibody Rapid Negative (NEGATIVE) Test 03/03/20 05:50 Height (Feet): 5 Height (Inches): 2.00 Weight (Pounds): 147 Objective Physical Exam: Vitals: reviewed General: NAD HEENT: nc, at Neck: supple Chest: clear breath sounds bilaterally Cardiovascular: RRR, no s3, s4 Abdomen: soft, nontender, nd Extremities: no cce, normal range of motion Neuro: alert and oriented Slick Herrera MD Mar 03, 2020 07:38
[2020-03-03 07:57] LABS: ANION GAP 4 mmol/L (5-15); BLOOD UREA NITROGEN 8 mg/dL (7-18); CALCIUM 9.5 MG/DL (8.5-10.1); CARBON DIOXIDE 32 MMOL/L (21-32); CHLORIDE 104 MMOL/L (98-107); POTASSIUM 4.5 MMOL/L (3.5-5.1); SODIUM 140 MMOL/L (136-145)
[2020-03-03 08:00] VITALS: BP 147/63
--- NOTE | 2020-03-03 08:27 | General Progress Note ---
Assessment/Plan Problem List: (1) HTN (hypertension) ICD Codes: I10 - Essential (primary) hypertension SNOMED: 54878329 (2) Leukopenia ICD Codes: D72.819 - Decreased white blood cell count, unspecified SNOMED: 99557492, 618408627 (3) COPD (chronic obstructive pulmonary disease) ICD Codes: J44.9 - Chronic obstructive pulmonary disease, unspecified SNOMED: 10438330 (4) Weakness ICD Codes: R53.1 - Weakness SNOMED: 51487841 Status: stable, progressing Assessment/Plan: pt diet pain control neuro heme eval cbc bmp am dc plan if clear Subjective Constitutional: Reports: weakness Allergies: Coded Allergies: CODEINE (Verified Allergy, Unknown, 02/29/20) All Systems: reviewed and negative except above Subjective calm in bed Objective Last 24 Hour Vital Signs Date Time Temp Pulse Resp B/P (MAP) Pulse Ox O2 Delivery O2 Flow Rate FiO2 03/03/20 05:41 98.1 03/03/20 04:00 59 03/03/20 04:00 97.9 60 17 140/70 (93) 100 03/03/20 00:00 57 03/03/20 00:00 98.1 57 16 145/76 (99) 100 03/02/20 21:00 Room Air 03/02/20 20:00 62 03/02/20 20:00 97.9 64 17 138/68 (91) 100 03/02/20 16:00 73 03/02/20 16:00 97.9 62 16 132/62 (85) 100 03/02/20 12:00 60 03/02/20 12:00 97.8 61 16 132/61 (84) 97 03/02/20 09:00 Room Air 03/02/20 08:43 142/60 Intake and Output 03/02/20 03/03/20 19:00 07:00 Intake Total 500 ml 550 ml Balance 500 ml 550 ml Intake Oral 500 ml IV Total 550 ml # Voids 2 2 Laboratory Tests 03/03/20 05:50: White Blood Count 4.3L, Red Blood Count 5.37, Hemoglobin 14.5, Hematocrit 45.0, Mean Corpuscular Volume 84, Mean Corpuscular Hemoglobin 27.0, Mean Corpuscular Hemoglobin Concent 32.3, Red Cell Distribution Width 11.9, Platelet Count 185, Mean Platelet Volume 6.8, Neutrophils (%) (Auto) 34.0L, Lymphocytes (%) (Auto) 48.6H, Monocytes (%) (Auto) 11.1H, Eosinophils (%) (Auto) 4.2H, Basophils (%) ( Auto) 2.0, Sodium Level 140, Potassium Level 4.5, Chloride Level 104, Carbon Dioxide Level 32, Anion Gap 4L, Blood Urea Nitrogen 8, Creatinine 1.0, Estimat Glomerular Filtration Rate > 60, Glucose Level 96, Calcium Level 9.5, Alpha Fetoprotein [Pending] Height (Feet): 5 Height (Inches): 2.00 Weight (Pounds): 147 General Appearance: alert EENT: normal ENT inspection Neck: normal alignment Cardiovascular: normal peripheral pulses, normal rate, regular rhythm Respiratory/Chest: chest wall non-tender, lungs clear, normal breath sounds Abdomen: normal bowel sounds, non tender, soft Extremities: normal inspection Edema: no edema noted Arm (L), no edema noted Arm (R), no edema noted Leg (L), no edema noted Leg (R), no edema noted Pedal (L), no edema noted Pedal (R), no edema noted Generalized Neurologic: responsive, motor weakness Skin: normal pigmentation, warm/dry Yandel Martinez DO Mar 03, 2020 08:27
[2020-03-03] MEDS: Milk of Magnesia 30ml Ud ORAL PRN (09:19)
[2020-03-03] MEDS: Docusate 100mg cap ORAL SCH ×2 (09:19→17:37)
[2020-03-03] MEDS: Lisinopril 10mg tab ORAL SCH (09:19)
--- NOTE | 2020-03-03 10:57 | NUR ---
DISCHARGE PLANNING PATIENT REFERRED TO [facility] (Dr Thakkar) T: [phone] F: [phone] NO DC ORDER NURSE TO OBTAIN CLEARANCE FROM HEME AND NEURO Addendum: 03/04/20 at 0958 by RUTHY MANN LVN PATIENT ACCEPTED TO [facility]
[2020-03-03 12:00] VITALS: BP 142/64
[2020-03-03 16:00] VITALS: BP 138/71
--- NOTE | 2020-03-03 19:20 | NUR ---
NURSE HAND-OFF REPORT: Important Events on Shift:NA Patient Status: Stable Diet: Regular Pending Orders: NA Pending Results/Labs:Morning labs Pending MD notification:NA Latest Vital Signs: Temperature 98.1 , Pulse 61 , B/P 138 /71 , Respiratory Rate 20 , O2 SAT 100 , Room Air, O2 Flow Rate . Vital Sign Comment: Stable EKG Rhythm: Sinus Rhythm Rhythm change?: N MD Notified?: N - MD Response: Latest Hernandez Fall Score: 20 Fall Risk: Low Risk Safety Measures: Call light Within Reach, Bed Alarm Zone 2, Side Rails Side Rails x2, Bed position Low and Locked. Fall Precautions: Patient Fall Education Report given to Lisbeth/DOM.
[2020-03-03 20:00] VITALS: BP 165/84
[2020-03-03] MEDS: Atorvastatin 20mg tab ORAL SCH (20:46)
[2020-03-04] VITALS: BP 140/70
[2020-03-04] MEDS: Morphine Sulfate 2mg/ml Inj(IV/IM USE ONLY) IVP PRN ×4 (01:31→15:45)
[2020-03-04 04:00] VITALS: BP 138/73
[2020-03-04 06:59] LABS: BASOPHILS % (AUTO) 1.7 % (0.0-2.0); EOSINOPHILS % (AUTO) 3.1 % (0.0-3.0); HEMATOCRIT 44.6 % (37.0-47.0); HEMOGLOBIN 14.4 G/DL (12.0-16.0); LYMPHOCYTES % (AUTO) 45.7 % (20.0-45.0); MEAN CORPUSCULAR VOLUME 83 FL (80-99); MONOCYTES % (AUTO) 10.7 % (1.0-10.0); NEUTROPHILS % (AUTO) 38.8 % (45.0-75.0); PLATELET COUNT 178 K/UL (150-450); RED BLOOD COUNT 5.36 M/UL (4.20-5.40); WHITE BLOOD COUNT 4.2 K/UL (4.8-10.8)
--- NOTE | 2020-03-04 07:01 | NUR ---
NURSE NOTES: Received patient in bed awake. No SOB or acute distress. IV line intact. HOB elevated. Bed locked in low position. Call light within reach. On pain mgnt. Will continue plan of care.
[2020-03-04 07:04] LABS: ANION GAP 4 mmol/L (5-15); BLOOD UREA NITROGEN 7 mg/dL (7-18); CALCIUM 9.3 MG/DL (8.5-10.1); CARBON DIOXIDE 31 MMOL/L (21-32); CHLORIDE 108 MMOL/L (98-107); CREATININE 0.9 MG/DL (0.55-1.30); POTASSIUM 4.7 MMOL/L (3.5-5.1); SODIUM 143 MMOL/L (136-145)
--- NOTE | 2020-03-04 07:05 | Hematology/Onc Progress Note ---
Assessment/Plan Assessment/Plan Assessment and recs # Leukopenia -- multiple etiologies could be related to underlying liver disease , medication-induced, infection versus viral syndrome may be due to fact patient is , benign congentital neutropenia also HEPATITIS C++ --> peripheral smear has been ordered and does not show significant abnormalities --> Medications have been reviewed --> Continue to monitor for improvement, trend cbc --> Hep panel and HIV have been ordered--> hep C+++ --> US abd ordered to r/o cirrhosis and hepatosplenomegaly --> reverse isolation if ANC is <2000 --> Give neupogen if ANC <1000 --> wbc 4.8-->3.9-->5 # Generalized wealness with no focal neurologic deficits, abnormal muscle tone, hypo/hyperreflexia, or fatigability. No evidence of stroke, spinal cord emergency, neuromuscular junction disorder, or multiple sclerosis at this time. --> mri of the thoracic spine --> as per neuro --> pt/ot # Dehydration --> goal of euvolemia --> as per renal # HL --> consider statin and asa # HTN --> sbp goal <140 # Dvt ppx ambulation The timing of this note does not necessarily reflect the time of the patient was seen. Greatly appreciate consultation. Subjective Cardiovascular: Denies: no symptoms, chest pain, edema, irregular heart rate, lightheadedness, palpitations, syncope, other Respiratory: Denies: no symptoms, cough, shortness of breath, SOB with excertion, SOB at rest, sputum, wheezing, other Gastrointestinal/Abdominal: Denies: no symptoms, abdomen distended, abdominal pain, black stools, tarry stools, blood in stool, constipated, diarrhea, difficulty swallowing, nausea, poor appetite, poor fluid intake, rectal bleeding , vomiting, other Genitourinary: Denies: no symptoms, burning, discharge, frequency, flank pain, hematuria, incontinence, pain, urgency, other Neurologic/Psychiatric: Denies: no symptoms, anxiety, depressed, emotional problems, headache, numbness, paresthesia, pre-existing deficit, seizure, tingling, tremors, weakness, other Endocrine: Denies: no symptoms, excessive sweating, flushing, intolerance to cold, intolerance to heat, increased hunger, increased thirst, increased urine, unexplained weight gain, unexplained weight loss, other Allergies: Coded Allergies: CODEINE (Verified Allergy, Unknown, 02/29/20) Subjective 03/03 labs are noted, no bleeding, in semi-fowlers position no bleeding, cbc noted 03/04 labs from am are pending, hep and hiv are negative, dw rn Objective Objective Current Medications Medications (Trade) Dose Ordered Sig/Torrie Route PRN Reason Start Time Stop Time Status Last Admin Dose Admin Atorvastatin Calcium (Lipitor) 40 mg BEDTIME ORAL 03/02/20 21:00 05/31/20 20:59 03/03/20 20:46 Bisacodyl (Dulcolax) 10 mg BIDPRN PRN RECTAL Constipation 03/01/20 22:00 05/30/20 21:59 Dextrose/Sodium Chloride 1,000 ml @ 50 mls/hr Q20H IV 02/29/20 17:00 03/30/20 16:59 03/03/20 23:41 Docusate Sodium (Colace) 100 mg TWICE A DAY ORAL 03/01/20 22:00 03/31/20 21:59 03/03/20 09:19 Gadobutrol (Gadavist) 7.5 mmol NOW PRN IV Radiology Procedure 02/29/20 17:45 03/04/20 17:42 Gadobutrol (Gadavist) 7.5 mmol NOW PRN IV Radiology Procedure 02/29/20 17:45 03/04/20 17:42 Lisinopril (ZestriL) 10 mg DAILY ORAL 03/02/20 09:00 04/01/20 08:59 03/03/20 09:19 Magnesium Hydroxide (Mom) 30 ml Q6HR PRN ORAL Constipation 03/02/20 13:00 04/01/20 12:59 03/03/20 09:19 Morphine Sulfate (Morphine Sulfate) 2 mg Q4H PRN IVP For Pain 02/29/20 15:30 03/07/20 15:29 03/04/20 05:43 Last 24 Hour Vital Signs Date Time Temp Pulse Resp B/P (MAP) Pulse Ox O2 Delivery O2 Flow Rate FiO2 03/04/20 06:13 97.9 03/04/20 04:00 68 03/04/20 04:00 98.1 62 20 138/73 (94) 100 03/04/20 00:00 74 03/04/20 00:00 97.9 64 17 140/70 (93) 100 03/03/20 21:00 Room Air 03/03/20 20:00 97.9 66 16 165/84 (111) 98 03/03/20 20:00 65 03/03/20 16:00 61 03/03/20 16:00 98.1 62 20 138/71 (93) 100 03/03/20 12:00 59 03/03/20 12:00 97.4 60 20 142/64 (90) 99 03/03/20 09:19 147/63 03/03/20 09:00 Room Air 03/03/20 08:00 65 03/03/20 08:00 97.4 66 20 147/63 (91) 100 03/03/20 04:00 59 03/03/20 04:00 97.9 60 17 140/70 (93) 100 03/03/20 00:00 57 03/03/20 00:00 98.1 57 16 145/76 (99) 100 03/02/20 21:00 Room Air 03/02/20 20:00 62 03/02/20 20:00 97.9 64 17 138/68 (91) 100 03/02/20 16:00 73 03/02/20 16:00 97.9 62 16 132/62 (85) 100 03/02/20 12:00 60 03/02/20 12:00 97.8 61 16 132/61 (84) 97 03/02/20 09:00 Room Air 03/02/20 08:43 142/60 03/02/20 08:00 98.1 63 17 142/60 (87) 98 03/02/20 08:00 62 Intake and Output 03/03/20 03/04/20 19:00 07:00 Intake Total 550 ml 680 ml Balance 550 ml 680 ml Intake Oral 500 ml 280 ml IV Total 50 ml 400 ml # Voids 4 3 Labs Test 03/02/20 07:20 03/03/20 05:50 03/04/20 05:30 White Blood Count 4.8 K/UL (4.8-10.8) 4.3 K/UL (4.8-10.8) Red Blood Count 5.28 M/UL (4.20-5.40) 5.37 M/UL (4.20-5.40) Hemoglobin 14.4 G/DL (12.0-16.0) 14.5 G/DL (12.0-16.0) Hematocrit 44.3 % (37.0-47.0) 45.0 % (37.0-47.0) Mean Corpuscular Volume 84 FL (80-99) 84 FL (80-99) Mean Corpuscular Hemoglobin 27.3 PG (27.0-31.0) 27.0 PG (27.0-31.0) Mean Corpuscular Hemoglobin Concent 32.5 G/DL (32.0-36.0) 32.3 G/DL (32.0-36.0) Red Cell Distribution Width 12.3 % (11.6-14.8) 11.9 % (11.6-14.8) Platelet Count 179 K/UL (150-450) 185 K/UL (150-450) Mean Platelet Volume 6.7 FL (6.5-10.1) 6.8 FL (6.5-10.1) Neutrophils (%) (Auto) 32.5 % (45.0-75.0) 34.0 % (45.0-75.0) Lymphocytes (%) (Auto) 50.8 % (20.0-45.0) 48.6 % (20.0-45.0) Monocytes (%) (Auto) 10.2 % (1.0-10.0) 11.1 % (1.0-10.0) Eosinophils (%) (Auto) 4.0 % (0.0-3.0) 4.2 % (0.0-3.0) Basophils (%) (Auto) 2.4 % (0.0-2.0) 2.0 % (0.0-2.0) Sodium Level 141 MMOL/L (136-145) 140 MMOL/L (136-145) Potassium Level 4.7 MMOL/L (3.5-5.1) 4.5 MMOL/L (3.5-5.1) Chloride Level 104 MMOL/L (98-107) 104 MMOL/L (98-107) Carbon Dioxide Level 33 MMOL/L (21-32) 32 MMOL/L (21-32) Anion Gap 5 mmol/L (5-15) 4 mmol/L (5-15) Blood Urea Nitrogen 8 mg/dL (7-18) 8 mg/dL (7-18) Creatinine 0.9 MG/DL (0.55-1.30) 1.0 MG/DL (0.55-1.30) Estimat Glomerular Filtration Rate > 60 mL/min (>60) > 60 mL/min (>60) Glucose Level 89 MG/DL (74-106) 96 MG/DL (74-106) Calcium Level 9.5 MG/DL (8.5-10.1) 9.5 MG/DL (8.5-10.1) Height (Feet): 5 Height (Inches): 2.00 Weight (Pounds): 148 Objective Physical Exam: Vitals: reviewed General: NAD HEENT: nc, at Neck: supple Chest: clear breath sounds bilaterally Cardiovascular: RRR, no s3, s4 Abdomen: soft, nontender, nd Extremities: no cce, normal range of motion Neuro: alert and oriented Slick Herrera MD Mar 04, 2020 07:05
--- NOTE | 2020-03-04 07:25 | NUR ---
NURSE HAND-OFF REPORT: Important Events on Shift: pain management, pending case management, home health- d/c if cleared by neuro and hematology Patient Status: stable Diet: regular Pending Orders: cbc bmp Pending Results/Labs:cbc bmp Latest Vital Signs: Temperature 98.1 , Pulse 60 , B/P 140 /70 , Respiratory Rate 17 , O2 SAT 100 , Room Air, O2 Flow Rate . EKG Rhythm: SR Rhythm change?: N MD Notified?: N - Latest Hernandez Fall Score: 20 Fall Risk: Low Risk Safety Measures: Call light Within Reach, Bed Alarm Zone 2, Side Rails Side Rails x2, Bed position Low and Locked. Fall Precautions: Patient Fall Education Report given to Aminta FERNANDES
[2020-03-04 08:00] VITALS: BP 134/95
[2020-03-04] MEDS: Lisinopril 10mg tab ORAL SCH (08:59)
[2020-03-04] MEDS: Docusate 100mg cap ORAL SCH ×2 (09:00→17:18)
--- NOTE | 2020-03-04 09:02 | General Progress Note ---
Assessment/Plan Problem List: (1) HTN (hypertension) ICD Codes: I10 - Essential (primary) hypertension SNOMED: 94989354 (2) Leukopenia ICD Codes: D72.819 - Decreased white blood cell count, unspecified SNOMED: 05129481, 644229580 (3) COPD (chronic obstructive pulmonary disease) ICD Codes: J44.9 - Chronic obstructive pulmonary disease, unspecified SNOMED: 07943660 (4) Weakness ICD Codes: R53.1 - Weakness SNOMED: 71159968 Status: stable, progressing Assessment/Plan: pt diet pain control neuro heme eval cbc bmp am dc plan if clear Subjective Constitutional: Reports: weakness Allergies: Coded Allergies: CODEINE (Verified Allergy, Unknown, 02/29/20) All Systems: reviewed and negative except above Subjective calm in bed Objective Last 24 Hour Vital Signs Date Time Temp Pulse Resp B/P (MAP) Pulse Ox O2 Delivery O2 Flow Rate FiO2 03/04/20 08:59 134/95 03/04/20 08:00 97.7 62 18 134/95 (108) 97 03/04/20 06:13 97.9 03/04/20 04:00 68 03/04/20 04:00 98.1 62 20 138/73 (94) 100 03/04/20 00:00 74 03/04/20 00:00 97.9 64 17 140/70 (93) 100 03/03/20 21:00 Room Air 03/03/20 20:00 97.9 66 16 165/84 (111) 98 03/03/20 20:00 65 03/03/20 16:00 61 03/03/20 16:00 98.1 62 20 138/71 (93) 100 03/03/20 12:00 59 03/03/20 12:00 97.4 60 20 142/64 (90) 99 03/03/20 09:19 147/63 Intake and Output 03/03/20 03/04/20 19:00 07:00 Intake Total 550 ml 680 ml Balance 550 ml 680 ml Intake Oral 500 ml 280 ml IV Total 50 ml 400 ml # Voids 4 3 Laboratory Tests 03/04/20 05:30: White Blood Count 4.2L, Red Blood Count 5.36, Hemoglobin 14.4, Hematocrit 44.6, Mean Corpuscular Volume 83, Mean Corpuscular Hemoglobin 26.8L, Mean Corpuscular Hemoglobin Concent 32.2, Red Cell Distribution Width 12.0, Platelet Count 178, Mean Platelet Volume 6.9, Neutrophils (%) (Auto) 38.8L, Lymphocytes (%) (Auto) 45.7H, Monocytes (%) (Auto) 10.7H, Eosinophils (%) (Auto) 3.1H, Basophils (%) ( Auto) 1.7, Sodium Level 143, Potassium Level 4.7, Chloride Level 108H, Carbon Dioxide Level 31, Anion Gap 4L, Blood Urea Nitrogen 7, Creatinine 0.9, Estimat Glomerular Filtration Rate > 60, Glucose Level 108H, Calcium Level 9.3 Height (Feet): 5 Height (Inches): 2.00 Weight (Pounds): 148 General Appearance: alert EENT: normal ENT inspection Neck: normal alignment Cardiovascular: normal peripheral pulses, normal rate, regular rhythm Respiratory/Chest: chest wall non-tender, lungs clear, normal breath sounds Abdomen: normal bowel sounds, non tender, soft Extremities: normal inspection Edema: no edema noted Arm (L), no edema noted Arm (R), no edema noted Leg (L), no edema noted Leg (R), no edema noted Pedal (L), no edema noted Pedal (R), no edema noted Generalized Neurologic: responsive, motor weakness Skin: normal pigmentation, warm/dry Yandel Martinez DO Mar 04, 2020 09:02
[2020-03-04 11:36] VITALS: BP 134/71
--- NOTE | 2020-03-04 11:57 | NUR ---
CASE MANAGEMENT: REVIEW SI: DEHYDRATION T 97.7 HR 87 RR 20 BP 134/71 SAT 97% ROOM AIR WBC 4.2 CT ABD PENDING R/O CIRRHOSIS IS: D5 1/2 NS IVF @ 50ML/HR MORPHINE IV Q4HR PRN TELEMETRY UNIT STATUS DCP: PATIENT IS FROM HOME
--- NOTE | 2020-03-04 14:46 | NUR ---
CASE MANAGEMENT: ANIBAL DC HOME WITH [facility] [phone] SOC: IDALIA KAHN 03/05/2020
[2020-03-04 16:00] VITALS: BP 132/72
--- NOTE | 2020-03-04 17:24 | Diagnostic Imaging Report ---
Indication: Abdominal pain Technique: Yarbrough-scale and duplex images of the upper abdomen were obtained Comparison: none Findings: Gallbladder is unremarkable, without stones, wall thickening, nor pericholecystic fluid. Sonographic Moran's sign is negative. Common bile duct measures for mm in diameter. No intrahepatic biliary ductal dilatation. Liver demonstrates normal echogenicity, no focal abnormality. Portal vein and hepatic veins are patent. Pancreas is unremarkable. Spleen is unremarkable. Left kidney measures 8.3 cm in length. Right kidney measures 11.2 cm length. Both kidneys demonstrate normal echogenicity. There is no hydronephrosis. Both kidneys demonstrate numerous cysts. There are cortical calcifications in the lower pole left kidney. There is a septated left renal cyst . Non-aneurysmal abdominal aorta . Impression: Negative for gallstones or dilated bile ducts Bilateral renal cysts Left renal calcifications, probably cortical but could be calyceal. Negative right necrosis Small left kidney
--- NOTE | 2020-03-04 17:53 | NUR ---
NURSE NOTES: Patient discharged to home with home health in stable condition. Discharge instructions given, verbalized understanding. No new skin issues noted. Belongings accounted for. hospital monitor removed. ID band removed. IV line removed. [facility] nurse, picked up by son.
--- NOTE | 2020-03-05 11:49 | Discharge Summary ---
Discharge Summary Discharge Summary _ DATE OF ADMISSION: 03/01/2020 DATE OF DISCHARGE: 03/04/2020 DISCHARGED BY: REASON FOR ADMISSION: 69 years old female with past medical history of COPD, hypertension , was referred to emergency department due to abnormal labs. Patient was told by her doctor that she had a high potassium and high sodium. She complained of generalized weakness. She reported muscle cramping and fatigue. No chest pain, palpitations, shortness of breath. No abdominal pain , nausea, vomiting or diarrhea. Cough reported as dry, no hemoptysis . Upon evaluation vital signs were stable. Pulse oximetry was stable on room air. Chest x-ray revealed minimal atelectatic changes at the lung bases . Lungs and pleural spaces were clear otherwise. EKG revealed sinus rhythm , no acute ischemic changes. Troponin negative Laboratory work-up revealed no leukocytosis ,stable hemoglobin ,hematocrit and platelet count. Stable electrolytes: sodium 142, potassium 4.3 . BUN 14, creatinine 1.0. Urinalysis revealed no evidence of urinary tract infection. Rapid COVID-19 was negative. In emergency department patient received IV fluids and admitted for further management. CONSULTANTS: neurologist Dr. Jain microstrategy reports developer/oncologist Dr. Herrera [facility] COURSE: Patient admitted to telemetry floor. Neurologist consulted for back and leg pain. Per neurologist , he did not see any significant myopathy or spinal cord problem. Back pain was in the lower back. Patient also reported numbness in the anterior thigh . Neurologist recommended MRI of thoracic and lumbar spine due to her smoking history to exclude possibility of metastatic lung cancer. Pain management was addressed. Supportive care provided. MRI of thoracic spine r was negative. MRI of the lumbar spine revealed evidence of severe spinal stenosis at L2-3. Evidence of posterior fusion surgery and disc spacer bridging L3 and L4. Multilevel degenerative changes. Patient was working with physical therapist. Fall precaution maintained. Patient was hydrated with IV fluids. Renal parameters and electrolytes were closely monitored, nephrotoxic's were avoided . Electrolytes and renal function remained stable. Blood pressure was managed with JEAN inhibitor. Statin continued. Union Laborer seen patient for mild leukopenia. HIV test was nonreactive . Hepatitis panel revealed evidence of hepatitis C . Patient was recommended outpatient hepatitis C treatment. Abdominal ultrasound revealed no evidence of gallstones or dilated bile ducts. Patient clinically stabilized and was ready for discharge home. Home health services were arranged for physical therapy. FINAL DIAGNOSES: COPD Back and leg pain, probably due to severe spinal stenosis Severe spinal stenosis Multilevel degenerative disease L-spine Hypertension Generalized weakness Hepatitis C Leukopenia DISCHARGE MEDICATIONS: See Medication Reconciliation list. DISCHARGE INSTRUCTIONS: Patient was discharged home with home health services. Follow up with primary care provider in one week. I have been assigned to dictate discharge summary for this account. I was not involved in the patient's management. Kely Marina NP Mar 05, 2020 11:49
== END 2020-03-04 17:49 | disposition home health service (06) | DRG 552 ==
LOC: EMR 13:55 → 2E 14:12 → EDBEDREQ 14:25 → OBSVTOIN 03-01 20:01 → 2E 03-04 15:31
DX: M51.36 Other intervertebral disc degeneration, lumbar region (principal); N17.9 Acute kidney failure, unspecified; M48.061 Spinal stenosis, lumbar region without neurogenic claudication; I10 Essential (primary) hypertension; J44.9 Chronic obstructive pulmonary disease, unspecified; M79.669 Pain in unspecified lower leg; R53.1 Weakness; B19.20 Unspecified viral hepatitis C without hepatic coma; E78.5 Hyperlipidemia, unspecified; Z88.6 Allergy status to analgesic agent; E86.0 Dehydration
CPT/HCPCS: 36415; 71045; 72157; 72158; 76700; 80048; 80053; 81003; 82105; 83690; 84484; 85025; 85610; 85651; 85730; 86140; 86703; 86705; 86709; 86803; 87340; 93005; 96361; 96374; 96375; 99285; A9585; U0002

== ENCOUNTER → 2020-05-06 | Outpatient (CLI) | payer MEDICARE, MEDICAID ==
--- NOTE | 2020-05-08 04:10 | Cardiology Report ---
APPROVED REPORT EKG Measurement Heart [id number] <Conclusion> Normal sinus rhythm Biatrial enlargement Septal infarct, age undetermined Abnormal ECG
== END | disposition home or self-care (01) ==
LOC: CAR 09:57
DX: M48.00 Spinal stenosis, site unspecified (principal); I45.9 Conduction disorder, unspecified; I51.7 Cardiomegaly
CPT/HCPCS: 93005

== ENCOUNTER → 2020-05-23 | Outpatient (CLI) | payer MEDICARE, MEDICAID ==
[2020-05-23 09:56] LABS: % IRON SATURATION 25 % (15-50); IRON 97 ug/dL (50-175); TOTAL IRON BINDING CAPACITY 386 ug/dL (250-450)
[2020-05-23 10:09] LABS: FERRITIN 93 NG/ML (8-388)
--- NOTE | 2020-05-27 10:47 | Cardiology Report ---
APPROVED REPORT EXAM: Two-dimensional and M-mode echocardiogram with Doppler and color Doppler. INDICATION CAD M-Mode DIMENSIONS IVSd1.1 (0.7-1.1cm)Left Atrium (MM)2.7 (1.6-4.0cm) LVDd3.8 (3.5-5.6cm)Aortic Root2.8 (2.0-3.7cm) PWd1.0 (0.7-1.1cm)Aortic Cusp Exc.1.6 (1.5-2.0cm) IVSs1.4 cm LVDs2.4 (2.5-4.0cm) PWs1.3 cm <Conclusion> Normal left ventricular chamber size, systolic function and wall motion. Left ventricular ejection fraction estimated to be 60-65 %. Study quality precludes accurate assessment of regional wall motion. Mild left ventricular hypertrophy by 2-D. Anterior Echo-free space, may be due to pericardial fat or effusion. All other cardiac chamber sizes are within normal limits. Focal aortic valve sclerosis with adequate cusp excursion. mitral valve leaflets with normal excursion. Mitral annulus and aortic root calcification. Pulmonic valve not well visualized. Normal tricuspid valve structure. IVC at normal size with physiologic collapse. A color flow and spectral Doppler study was performed and revealed: No aortic insufficiency. Trace mitral regurgitation. Mitral diastolic velocities suggest reduced left ventricular relaxation c/w mild LV diastolic dysfunction (Grade I ). Mild tricuspid regurgitation. Tricuspid systolic velocities suggests peak right ventricular systolic pressure of 23 mmHg. No pulmonic insufficiency .
== END | disposition home or self-care (01) ==
LOC: LAB 09:09
DX: I25.10 Atherosclerotic heart disease of native coronary artery without angina pectoris (principal); R71.8 Other abnormality of red blood cells
CPT/HCPCS: 36415; 82728; 83540; 83550; 93306

== ENCOUNTER 2020-06-24 10:17 | Inpatient (IN) | payer MEDICARE, MEDICAID ==
[~2020-06-24] VITALS: Ht 157.5 cm; Wt 64.9 kg
[2020-06-24 10:47] VITALS: BP 146/87
--- NOTE | 2020-06-24 10:47 | NUR ---
ED Nurse Note: Patient from home and walked in due to pressure on CP for weeks and patient feels SOB aggravated when walking this morning. patient denies any coughing or fever. Patient is AAO x4, ambulates with steady gait with non labored breathing. Sats 98-100 % in room air.
--- NOTE | 2020-06-24 11:05 | NUR ---
ED Nurse Note: certified appliance service technician Alek at the bed side. collected blood specimen then sent.
[2020-06-24 11:32] LABS: BASOPHILS % (AUTO) 3.5 % (0.0-2.0); EOSINOPHILS % (AUTO) 3.6 % (0.0-3.0); HEMOGLOBIN 14.5 G/DL (12.0-16.0); LYMPHOCYTES % (AUTO) 45.4 % (20.0-45.0); MEAN CORPUSCULAR VOLUME 83 FL (80-99); MONOCYTES % (AUTO) 7.1 % (1.0-10.0); NEUTROPHILS % (AUTO) 40.4 % (45.0-75.0); PLATELET COUNT 195 K/UL (150-450); RED BLOOD COUNT 5.33 M/UL (4.20-5.40); WHITE BLOOD COUNT 4.3 K/UL (4.8-10.8)
--- NOTE | 2020-06-24 11:34 | Emergency Room Report ---
History of Present Illness General Chief Complaint: Chest Pain Source: Patient Present Illness HPI 69-year old -[place] female with past medical history of hypertension and dyslipidemia sent by her primary care doctor, Dr. Maximino Cordoba for evaluation of chest pain. Patient states that the chest pain is substernal and nonradiating. Pressure- like. Worse with walking. Also associated with shortness of breath with exertion. Admits to two-pillow orthopnea. No recent cardiac evaluation. The patient's symptoms were gradual onset, severity was moderate, duration since 3 weeks ago, however worse over the last 1 day. Quality: Substernal, pressure-like Past medical history: Hypertension, dyslipidemia Past surgical history: Hysterectomy, back surgery Smokin cigarettes a day Alcohol use: Denies Drug use: Denies Review of systems: CONST: No fevers or chills, No night sweats PULMONARY: No productive cough, ++ shortness of breath CARDIAC: ++ chest pain, No palpitations GI: No vomiting, No diarrhea , No melena_or_BRBPR : No dysuria, No hematuria, No discharge NEURO: No new_focal_weakness_or_numbness, No confusion, No vision changes 14 point Review of Systems is otherwise negative except per HPI Physical Exam: GENERAL: Awake_alert_ nontoxic, no acute distress Spo2 100% on RA -normal EYES: Extraocular muscles are intact. Conjunctivae clear. Lids without swelling ENT: External nose and ear normal_in_appearance. Oropharynx clear. Head_atraumatic, Moist_oral_mucosa NECK: No JVD. No meningismus. No thyromegaly. Supple. Trachea midline RESP: Normal respiratory effort. Symmetric rise. No stridor. Clear_to_auscultation_No_rales_No_wheezes CARDIAC: Regular rate and regular rhytm. No_significant pedal edema. ABDOMEN: Soft. Nondistended. Nontender_No_rebound_or_guarding. MSK: Normal muscle tone, without rigidity. Extremities without asymmetric deformity or swelling. SKIN: Warm and dry. No visible cyanosis or pallor NEUROLOGIC: Alert, oriented x3. Motor_and_sensation_grossly_intact. No truncal ataxia. Gait_normal Psych: Normal mood and affect, normal judgment and insight - COORDINATION OF CARE Case was discussed with: Patient , Patient's Physician Any labs and imaging that were ordered were interpreted as part of the medical decision making: Medical Decision Making/Plan: Differential includes acute coronary syndrome, pulmonary embolism, pneumonia, aortic dissection, pericardial tamponade, musculoskeletal chest pain, among others. Patient is nontoxic and well-appearing with stable vitals signs. She is describing substernal pressure, consistent with ACS. EKG is nonischemic. She has T wave inversions in the lateral leads. Troponin was negative x1. Chest x-ray was within normal limits. BNP is pending. Heart score is 6 based on age, HPI and risk factors. Patient would benefit from cardiac evaluation and admission. Will contact patient's primary care doctor for admission at this time. Aspirin given. However, given that chest pain is currently resolved, risks likely outweigh benefits of IV heparin at this time, so deferred. The pain is not classic for pericarditis or myocarditis, and the patient has no significant risk factors for a pericardial effusion and has stable vitals signs, unlikely to have tamponade. Pain is not likely to be pulmonary embolism, patient has no significant PE risk factors. Dimer is negative. The presentation is not consistent with dissection, pain is not severe, radiating to back, or tearing in nature. Has normal bilateral radial and pedal pulses. This patient appears to be a suitable candidate for transfer to telemetry floor at this time with orders from the admitting physician who is aware of the patient's evaluation, ancillary test findings, and current condition, and agrees with treatment and disposition. I spoke with Dr. Maximino Cordoba, and reviewed the patients presentation, workup, results, and treatment. They will admit the patient for further care and evaluation, and assume care of the patient at this time. Allergies: Coded Allergies: CODEINE (Verified Allergy, Unknown, 02/29/20) COVID-19 Screening Contact w/high risk pt: No Experienced COVID-19 symptoms?: No COVID-19 Testing performed COTTON JAMMER: Yes COVID-19 Screening: Negative COVID-19 COVID-19 Testing Source: ENVIRONMENTAL PROGRAMS SPECIALIST 05/24 Patient History Now: No Nursing Documentation-[facility] Past Medical History: No History, Except For Hx Hypertension: Yes Physical Exam Vital Signs Date Time Temp Pulse Resp B/P (MAP) Pulse Ox O2 Delivery O2 Flow Rate FiO2 06/24/20 10:37 98.1 92 18 146/87 (106) 96 Room Air Sp02 EP Interpretation: reviewed, normal Medical Decision Making Diagnostic Impression: Primary Impression: Chest pain Additional Impressions: HTN (hypertension) Dyslipidemia Tobacco abuse EKG Diagnostic Results MARGUERITE Han 12-lead EKG (interpreted by me) Time: 1050 Indication: Rhythm analysis Tracing visualized and Interpreted by me. Rhythm: Normal sinus rhythm Rate: 83 bpm QTc: 441 Morphology: No_significant_ST_elevations_or_depressions, No STEMI Impression: Sinus rhythm. T wave inversions V4 through V6, lead III, and aVF Rhythm Strip Diag. Results Rhythm Strip Time: 11:34 EP Interpretation: yes Rate: 76 Rhythm: NSR, no PVC's, no ectopy Chest X-Ray Diagnostic Results Chest X-Ray Diagnostic Results : MARGUERITE Han Chest X-Ray: Views: [ 1 ] view(s) Indication: Chest pain Findings: Normal heart size. Mediastinum normal. No infiltrate. Impression: NAD The X-ray(s) were independently viewed and interpreted contemporaneously Electronically signed by Laila pantoja DO Reevaluation Time: 11:34 Last Vital Signs Date Time Temp Pulse Resp B/P (MAP) Pulse Ox O2 Delivery O2 Flow Rate FiO2 06/24/20 10:47 92 18 Room Air 06/24/20 10:47 98.1 146/87 100 Status: improved Disposition: ADMITTED INPATIENT Admit Decision Time: 11:34 Condition: Stable Referrals: NON PHYSICIAN (PCP) Laila Johnson D.O. Jun 24, 2020 11:34
[2020-06-24 11:43] LABS: ANION GAP 6 mmol/L (5-15); BLOOD UREA NITROGEN 13 mg/dL (7-18); CALCIUM 9.8 MG/DL (8.5-10.1); CARBON DIOXIDE 29 MMOL/L (21-32); CHLORIDE 108 MMOL/L (98-107); CREATININE 0.8 MG/DL (0.55-1.30); POTASSIUM 4.9 MMOL/L (3.5-5.1); SODIUM 143 MMOL/L (136-145)
[2020-06-24] MEDS: Nitroglycerin Patch 0.1mg/hr TDERMAL SCH (11:46)
[2020-06-24 11:47] LABS: ALANINE AMINOTRANSFERASE 37 U/L (12-78); ALBUMIN 3.8 G/DL (3.4-5.0); ALKALINE PHOSPHATASE 57 U/L (46-116); ASPARTATE AMINO TRANSFERASE 40 U/L (15-37); BILIRUBIN,TOTAL 0.4 MG/DL (0.2-1.0)
--- NOTE | 2020-06-24 11:52 | NUR ---
ED Nurse Note: Covid19 rapid sent. Warm blanket provided to patient.
[2020-06-24 12:45] VITALS: BP 138/77
[2020-06-24] MEDS ORDERED: AMLODIPINE BESY10 MG ORAL (13:14)
--- NOTE | 2020-06-24 14:37 | Diagnostic Imaging Report ---
Indication: Chest pain Technique: One view of the chest Comparison: 02/29/2020 Findings: Suboptimal inspiration results in crowding of bronchovascular markings. The lungs and pleural spaces are clear. The heart size is normal. No significant change Impression: No acute process
--- NOTE | 2020-06-24 14:37 | NUR ---
ED Nurse Note: Patient ambulated to the restroom and returned to her bed without distress. patient speaks in clear sentences.
[2020-06-24 14:45] VITALS: BP 127/64
--- NOTE | 2020-06-24 16:26 | NUR ---
ED Nurse Note: Second troponin sent.
[2020-06-24 16:45] VITALS: BP 133/62
[2020-06-24 18:45] VITALS: BP 163/89
--- NOTE | 2020-06-24 19:20 | NUR ---
ED Nurse Note: Dr Sofia at the bed side.
--- NOTE | 2020-06-24 20:46 | NUR ---
ED Nurse Note: Sandwiches and juice provided to patient. Warm blankets offerred for comfort.
--- NOTE | 2020-06-24 21:23 | NUR ---
HAND-OFF: Report given to Niesha FERNANDES.
--- NOTE | 2020-06-24 21:25 | NUR ---
ED Nurse Note: Report received from DOM Loja.
[2020-06-24 21:30] VITALS: BP 147/87
--- NOTE | 2020-06-24 21:30 | NUR ---
ED Nurse Note: Vital signs are stable at this time. Patient is pleasant and verbally responsive. She is aware of hospital admission.
--- NOTE | 2020-06-24 21:50 | NUR ---
ED Nurse Note: Patient ambulated to restroom with steady gait.
[2020-06-24] MEDS ORDERED: TraZODone 100mg tab ORAL ONE (22:00)
[2020-06-24] MEDS ORDERED: TraZODone 50mg tab ORAL SCH (22:00)
--- NOTE | 2020-06-24 22:00 | NUR ---
HAND-OFF: Report given to DOM Campuzano.
--- NOTE | 2020-06-24 22:24 | Cardiology Progress Note ---
Assessment/Plan Assessment/Plan [id number] Objective Last 24 Hour Vital Signs Date Time Temp Pulse Resp B/P (MAP) Pulse Ox O2 Delivery O2 Flow Rate FiO2 06/24/20 21:30 98.2 87 19 147/87 100 Room Air 06/24/20 18:45 98.2 85 18 163/89 99 Room Air 06/24/20 16:45 97.9 76 16 133/62 98 Room Air 06/24/20 14:45 98.5 82 20 127/64 97 Room Air 06/24/20 12:45 98.6 76 15 138/77 99 Room Air 06/24/20 11:46 146/87 06/24/20 10:47 92 18 Room Air 06/24/20 10:47 98.1 84 16 146/87 100 Room Air 06/24/20 10:37 98.1 92 18 146/87 (106) 96 Room Air Laboratory Tests Test 06/24/20 11:00 06/24/20 16:25 White Blood Count 4.3 K/UL (4.8-10.8) L Red Blood Count 5.33 M/UL (4.20-5.40) Hemoglobin 14.5 G/DL (12.0-16.0) Hematocrit 44.0 % (37.0-47.0) Mean Corpuscular Volume 83 FL (80-99) Mean Corpuscular Hemoglobin 27.1 PG (27.0-31.0) Mean Corpuscular Hemoglobin Concent 32.8 G/DL (32.0-36.0) Red Cell Distribution Width 15.0 % (11.6-14.8) H Platelet Count 195 K/UL (150-450) Mean Platelet Volume 7.0 FL (6.5-10.1) Neutrophils (%) (Auto) 40.4 % (45.0-75.0) L Lymphocytes (%) (Auto) 45.4 % (20.0-45.0) H Monocytes (%) (Auto) 7.1 % (1.0-10.0) Eosinophils (%) (Auto) 3.6 % (0.0-3.0) H Basophils (%) (Auto) 3.5 % (0.0-2.0) H D-Dimer 0.46 mg/L FEU (0.00-0.49) Sodium Level 143 MMOL/L (136-145) Potassium Level 4.9 MMOL/L (3.5-5.1) Chloride Level 108 MMOL/L (98-107) H Carbon Dioxide Level 29 MMOL/L (21-32) Anion Gap 6 mmol/L (5-15) Blood Urea Nitrogen 13 mg/dL (7-18) Creatinine 0.8 MG/DL (0.55-1.30) Estimat Glomerular Filtration Rate > 60 mL/min (>60) Glucose Level 98 MG/DL (74-106) Calcium Level 9.8 MG/DL (8.5-10.1) Total Bilirubin 0.4 MG/DL (0.2-1.0) Aspartate Amino Transf (AST/SGOT) 40 U/L (15-37) H Alanine Aminotransferase (ALT/SGPT) 37 U/L (12-78) Alkaline Phosphatase 57 U/L (46-116) Troponin I 0.003 ng/mL (0.000-0.056) 0.007 ng/mL (0.000-0.056) Pro-B-Type Natriuretic Peptide Pending Total Protein 7.7 G/DL (6.4-8.2) Albumin 3.8 G/DL (3.4-5.0) Globulin 3.9 g/dL Albumin/Globulin Ratio 1.0 (1.0-2.7) Microbiology Date/Time Source Procedure Growth Status 06/24/20 12:05 Nasopharynx SARS-CoV-2 RdRp Gene Assay - Final Complete Rasheed Sofia MD Jun 24, 2020 22:24
[2020-06-24] MEDS ORDERED: Lexiscan 0.4mg/5ml syringe IV SCH (22:30)
[2020-06-24] MEDS ORDERED: Morphine Sulfate 4mg/ml Inj (IV USE ONLY) IVP ONE (23:15)
--- NOTE | 2020-06-24 23:24 | NUR ---
HAND-OFF: Report given to DOM Galarza.
--- NOTE | 2020-06-24 23:25 | NUR ---
ED Nurse Note: Received a pt awake, complaing of pain, verbal and A&Ox4. pt is on monitor and her vitals are stable. no complain of sob,fever and cough. We will keepp monitoring the pt.
--- NOTE | 2020-06-24 23:45 | Consultation ---
DATE OF CONSULTATION: 06/24/2020 CARDIOLOGY CONSULTATION CONSULTING PHYSICIAN: Rasheed Sofia MD REFERRING PHYSICIAN: Maximino Cordoba MD REASON FOR REFERRAL: Chest pain. HISTORY OF PRESENT ILLNESS: This is a middle-aged female who apparently developed some pressure sensation in her chest while she was walking today. She continued to walk until she arrived at home. She usually walks approximately 1 hour on a daily basis and she did the same approximately 1 week ago last and did not have any problems . She also developed some shortness of breath. Notified Dr. Cordoba and was told to come to the emergency room. While in the emergency room, had 2 sets of cardiac enzymes checked and because of lack of availability of admission bed due to the COVID pandemic, the patient has been remaining in the emergency room. She at the present time does not have any chest pain or shortness of breath. There is no PND. There is no orthopnea, uses 1 to 2 pillows. There is no dizziness or lightheadedness on standing and she denies any palpitations. PAST MEDICAL HISTORY: Positive for history of COPD, hypertension, hyperlipidemia. No history of heart attack. No cancer. No stroke. She does have history of hepatitis C that was treated. No tuberculosis. No asthma. She does have emphysema. No stomach ulcers. No kidney problems or any other liver problems or thyroid problems or anemia. She does have some spinal problems, discogenic in nature. She has had a prior hospitalization here at [facility]. She has severe spinal stenosis as well as leukopenia. ALLERGIES: She is allergic to codeine that causes her to have some itching. SOCIAL HISTORY: She admits to 3 cigarettes per day. No alcohol at the present time except social occasions and she denies drugs except for marijuana. 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 REVIEW OF SYSTEMS: GASTROINTESTINAL: She has had some problems with constipation. GENITOURINARY: Negative. PULMONARY: Positive for coughing and wheezing. CONSTITUTIONAL: Negative. NEUROLOGIC: Negative. PHYSICAL EXAMINATION: GENERAL: Shows to be middle-aged female, in no respiratory distress. NECK: Supple. No jugular venous distention. LUNGS: Decreased breath sounds noted bilaterally. No crackles noted. No significant inspiratory and expiratory wheezes noted. CARDIAC: Regular rate and rhythm. No heaves or thrills noted. Chest wall is tender, but is not the same pain that she has been experiencing or discomfort that she has been experiencing today. ABDOMEN: Soft, nontender. Positive bowel sounds. EXTREMITIES: There is no clubbing, cyanosis, or edema. NEUROLOGICAL: She is awake, alert, and responsive. LABORATORY AND DIAGNOSTIC DATA: White count of 4.3, hemoglobin 14.5, and platelet count of 195,000. Sodium 143, potassium 4.9, chloride 108, bicarb 29, BUN 13, creatinine 0.8, glucose of 98, calcium is 9.8. Liver function tests unremarkable. Troponin 0.03 and 0.007. These were approximately 5 hours apart. Her coags, D-dimer was 0.46 and no other testing is available. She did have an electrocardiogram that showed sinus rhythm. She does have some T-wave inversions in the inferior leads, which are new compared to the EKG that she had done at [facility] back in May of 2020 at which time her T-waves are upright in the inferolateral leads. A chest x-ray performed in the emergency room has been interpreted by the radiologist as showing no acute processes. ASSESSMENT AND PLAN: 1. Chest pain. 2. Abnormal electrocardiogram. 3. Hypertension. 4. Hyperlipidemia. 5. Spinal stenosis. Dr. Cordoba, this patient was seen in cardiac consultation. The patient is chest pain free at the present time although she has no symptoms at this time and her symptoms were not exercise prohibitive at the time of occurrence. She does have some T-wave changes on electrocardiogram. She should be treated with aspirin for the time being and serial enzymes will be repeated. If needed, patient may undergo myocardial perfusion imaging tomorrow. Echocardiogram has already been performed during the last month with ejection fraction of 60 to 65%. No significant valvular regurgitation. The patient's symptoms will be followed up after admission. The case was discussed with the emergency physician as well as Dr. Cordoba. Rasheed Sofia M.D. DR: VIC JOB#: [id number] CC:
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
--- NOTE | 2020-06-25 03:10 | NUR ---
TRANSFER TO FLOOR: Patient transferred to 239 as ordered, per dr benito. Report given to DOM castellanos. All Belongings sent with the pt. STEFAN lozano and Rn took the pt in a stable condition.
--- NOTE | 2020-06-25 03:15 | NUR ---
NURSE NOTES: Patient received from ER (DOM Galarza) under the care of Dr. Martinez for the admitting dx. of chest pain (possible onset of CHF). Patient noted allergic to Codeine and full code status. Patient is alert and oriented x4, verbally responsive with clear speech and able to make needs known. Patient tolerating room air well, saturation at 100%. Patient is able to ambulate with steady gait. Continent of bowel and bladder. Denies pain and discomfort at this time. Will continue to monitor.
[2020-06-25] MEDS ORDERED: CYMBALTA30 MG ORAL (06:27)
[2020-06-25] MEDS ORDERED: D5 1/2NS 1,000 ML IV SCH ×2 (06:30→12:30)
[2020-06-25] MEDS ORDERED: Lexiscan 0.4mg/5ml syringe IV PRN (06:45)
--- NOTE | 2020-06-25 07:25 | NUR ---
NURSE HAND-OFF REPORT: Important Events on Shift:Admit to unit Patient Status: Stable Diet: npo Pending Orders: Pending Results/Labs: Pending MD notification: Latest Vital Signs: Temperature 97.6 , Pulse 89 , B/P 135 /81 , Respiratory Rate 17 , O2 SAT 98 , Room Air, O2 Flow Rate . Vital Sign Comment: EKG Rhythm: Sinus Rhythm Rhythm change?: MD Notified?: - MD Response: Latest Hernandez Fall Score: 20 Fall Risk: Low Risk Safety Measures: Call light Within Reach, Bed Alarm Zone 1, Side Rails Side Rails x2, Bed position Low and Locked. Fall Precautions: Patient Fall Education Report given to DOM Roque.
--- NOTE | 2020-06-25 07:25 | NUR ---
NURSE NOTES: Received report from DOM Bates
--- NOTE | 2020-06-25 07:50 | NUR ---
NURSE NOTES: Left a message to Dr. Maximino Cordoba's office regarding the patient's consult. Asked the lens inspector to leave a message for him, and call back right away. The doctor's office opens at 0900.
[2020-06-25 08:00] VITALS: BP 121/70
--- NOTE | 2020-06-25 08:00 | NUR ---
NURSE NOTES: Patient is on bed, no signs of distress noted. Verbalized has a headache, and was given Tylenol PRN (per eMAR). Patient is on room air, tolerating well. Patient is currently NPO, regular diet will resume after stress test that will be happening today. HOB is slightly elevated, bed is on lowest position, locked, side rails up. Patient will continue to be monitored.
--- NOTE | 2020-06-25 08:05 | NUR ---
NURSE NOTES: Got a call from [employer] that the patient's stress test is going to be at 1000.
--- NOTE | 2020-06-25 10:20 | NUR ---
NURSE NOTES: Patient came back from Stress Test. Per previous nurse, D5 1/2 NS and NPO order are DCd once patient comes back from the stress test. Addendum: 06/25/20 at 1331 by Moo Dutta RN the whole procedure for the stress test was not done yet, so patient is back to NPO and continue D5 1/2 NS and DC after the whole stress test procedure is done.
[2020-06-25 12:00] VITALS: BP 134/75
[2020-06-25] MEDS: Nitroglycerin Patch 0.1mg/hr TDERMAL SCH (12:20)
--- NOTE | 2020-06-25 12:25 | Cardiology Progress Note ---
Assessment/Plan Assessment/Plan 1. Chest pain. 2. Abnormal electrocardiogram. 3. Hypertension. 4. Hyperlipidemia. 5. Spinal stenosis. all trops neg ekg remain with t inversion infero laterla not ntoed on ekg on 05/2020 mpi performed today result pending hopefully home today d/w rn Subjective Cardiovascular: Denies: chest pain, lightheadedness, palpitations Gastrointestinal/Abdominal: Denies: abdominal pain Genitourinary: Denies: burning Objective Last 24 Hour Vital Signs Date Time Temp Pulse Resp B/P (MAP) Pulse Ox O2 Delivery O2 Flow Rate FiO2 06/25/20 12:20 152/87 06/25/20 09:00 Room Air 06/25/20 08:00 97.0 65 17 121/70 (87) 100 06/25/20 07:46 63 06/25/20 04:12 Room Air 06/25/20 03:10 97.6 89 17 135/81 98 Room Air 06/24/20 21:30 98.2 87 19 147/87 100 Room Air 06/24/20 18:45 98.2 85 18 163/89 99 Room Air 06/24/20 16:45 97.9 76 16 133/62 98 Room Air 06/24/20 14:45 98.5 82 20 127/64 97 Room Air 06/24/20 12:45 98.6 76 15 138/77 99 Room Air General Appearance: no apparent distress, alert Neck: supple Cardiovascular: normal rate Respiratory/Chest: lungs clear Abdomen: normal bowel sounds, non tender, soft Extremities: no swelling Intake and Output 06/24/20 06/25/20 19:00 07:00 Intake Total 240 ml Balance 240 ml Intake Oral 240 ml # Voids 1 Laboratory Tests Test 06/24/20 16:25 06/25/20 08:30 Troponin I 0.007 ng/mL (0.000-0.056) 0.003 ng/mL (0.000-0.056) Pro-B-Type Natriuretic Peptide Pending Microbiology Date/Time Source Procedure Growth Status 06/24/20 12:05 Nasopharynx SARS-CoV-2 RdRp Gene Assay - Final Complete Rasheed Sofia MD Jun 25, 2020 12:25
--- NOTE | 2020-06-25 12:46 | NUR ---
NURSE NOTES: Patient is taken down to nuclear lab for the next part of the stress test.
--- NOTE | 2020-06-25 13:26 | NUR ---
NURSE NOTES: Patient is back from stress test. Regular diet is back per doctor's order (after the stress test) and DCd D5 1/2 NS per doctor's order after the stress test. Patient will continue to be monitored.
--- NOTE | 2020-06-25 15:05 | Diagnostic Imaging Report ---
Indications: Chest pain Technique: Single day single isotope protocol utilized. Initially, resting images obtained using IV administration 10.4 millicuries 99M technetium Myoview. Subsequently, patient underwent lexiscan stress testing. See cardiology report for details. During Lexiscan infusion, IV administration 30.5 mCi 99 M technetium Myoview. SPECT and planar images obtained. SPECT images gated to 8 phases of the cardiac cycle were also obtained, and reformatted into cine images for evaluation of ejection fraction. Comparison: none Findings: Presence or absence of symptoms during the infusion is not described on the cardiology report. Per cardiology report, resting EKG demonstrates normal sinus rhythm with T-wave inversion. Presence or absence of ST changes during infusion is not described on the cardiology report. Imaging demonstrates no fixed or reversible poststress perfusion defects. Normal left ventricular chamber size. Calculated post stress ejection fraction 71%. No focal wall motion abnormality Impression: Nonischemic clinical response to pharmacologic stress, per cardiology report Nonischemic electrocardiographic response to pharmacologic stress, per cardiology report No imaging findings to suggest ischemia, at level of stress achieved. Calculated post stress ejection fraction 71%
[2020-06-25 16:00] VITALS: BP 112/67
--- NOTE | 2020-06-25 16:15 | NUR ---
CASE MANAGEMENT:REVIEW FROM HOME CC: CHEST PAIN AND SOB SI: CHEST PAIN. HTN 98.1 92 18 146/87 96% ON RA TROPONIN(-) IS: ASA PO NITRO PATCH CXR : TO TELEMETRY PLAN: STRESS TEST
[2020-06-25] MEDS ORDERED: ACETAMINOPHEN325 M1 ORAL (18:34)
[2020-06-25] MEDS ORDERED: DOCUSATE SODIU100 MG ORAL (18:34)
--- NOTE | 2020-06-25 18:49 | Geriatric Progress Note ---
Assessment/Plan Problems: (1) Chest pain (2) COPD (chronic obstructive pulmonary disease) (3) Chronic pain syndrome (4) T wave inversion in EKG (5) HTN (hypertension) (6) Dyslipidemia (7) Tobacco abuse Assessment/Plan No evidence of ischemic coronary artery disease. Monitor for recurrent symptoms as outpatient. No evidence of infectious process. Mild constipation. Start docusate, discussed with patient. Hypertension with variable control. Will likely require further titration as outpatient. Discussed risk factors for CAD with patient. Encouraged attempt at d/c tobacco usage to decrease likelihood of ASCVD progression. Start Cymbalta for chronic pain syndrome, neuropathic symptoms. Discussed with: patient, hospital staff Subjective Interval Events Patient feels well, no new c/o. Discussed with Dr. Sofia. Nuc Med stress test negative for ischemia. Etiology of inverted T waves unclear. D/c NTG patch. OK to d/c home. Constitutional: Denies: chills, pain, sweats, fever Eye: Reports: acuity changes - improved post CE/IOL. Respiratory: Denies: cough, orthopnea, shortness of breath Cardiovascular: Denies: chest pain, edema, palpitations Gastrointestinal/Abdominal: Reports: constipation - mild bloating sensation, no bm x 2d.; Denies: abdominal pain, nausea, vomiting Genitourinary: Denies: dysuria Geriatric Geriatric Last 24 Hour Vital Signs Date Time Temp Pulse Resp B/P (MAP) Pulse Ox O2 Delivery O2 Flow Rate FiO2 06/25/20 16:00 97.9 68 18 112/67 (82) 99 06/25/20 15:47 71 06/25/20 12:20 152/87 06/25/20 12:00 96.6 61 17 134/75 (94) 95 06/25/20 11:38 71 06/25/20 09:00 Room Air 06/25/20 08:00 97.0 65 17 121/70 (87) 100 06/25/20 07:46 63 06/25/20 04:12 Room Air 06/25/20 03:10 97.6 89 17 135/81 98 Room Air 06/24/20 21:30 98.2 87 19 147/87 100 Room Air 06/24/20 18:45 98.2 85 18 163/89 99 Room Air Intake and Output 06/24/20 06/25/20 19:00 07:00 Intake Total 240 ml Balance 240 ml Intake Oral 240 ml # Voids 1 Laboratory Tests Test 06/25/20 08:30 Troponin I 0.003 ng/mL (0.000-0.056) Pro-B-Type Natriuretic Peptide 124 pg/mL (0-125) Current Medications Medications (Trade) Dose Ordered Sig/Torrie Route PRN Reason Start Time Stop Time Status Last Admin Dose Admin Acetaminophen (Tylenol) 650 mg Q4H PRN ORAL Mild Pain (Pain Scale 1-3) 06/25/20 06:30 07/25/20 06:29 06/25/20 12:19 Nitroglycerin (Ntg) 1 patch Q24H TDERMAL 06/24/20 11:30 07/24/20 11:29 06/25/20 12:20 Regadenoson (Lexiscan) 0.4 mg ONCE PRN IV stress test 06/25/20 06:45 06/27/20 22:29 06/25/20 12:04 Height (Feet): 5 Height (Inches): 2.00 Weight (Pounds): 143 General Appearance: no apparent distress, alert, non-toxic Head: normocephalic, atraumatic Eyes: bilateral anicteric ENT: normal voice Neck: full range of motion, no mass Respiratory: lungs clear, decreased breath sounds Cardiovascular: regular rate, rhythm Gastrointestinal: normal bowel sounds, non tender, soft, no mass, no organomegaly Musculoskeletal: no calf tenderness Edema: no edema noted Generalized Neurologic: no new focality Maximino Cordoba MD Jun 25, 2020 18:49
--- NOTE | 2020-06-25 19:19 | NUR ---
NURSE HAND-OFF REPORT: Important Events on Shift: Stress test done Patient Status: Diet: Pending Orders: Pending Results/Labs: Pending MD notification: Latest Vital Signs: Temperature 97.9 , Pulse 68 , B/P 112 /67 , Respiratory Rate 18 , O2 SAT 99 , Room Air, O2 Flow Rate . Vital Sign Comment: EKG Rhythm: Sinus Rhythm Rhythm change?: N MD Notified?: - MD Response: Latest Hernandez Fall Score: 20 Fall Risk: Low Risk Safety Measures: Call light Within Reach, Bed Alarm Zone 1, Side Rails Side Rails x2, Bed position Low and Locked. Fall Precautions: Yellow Socks Yellow Gown Door Sign Patient Fall Education Report given to DOM Barker.
--- NOTE | 2020-06-25 19:27 | NUR ---
NURSE NOTES: Received report from DOM Cortés, pt. in bed awake, A/O x's4- able to make needs known, no signs or symptoms of acute cardiac or respiratory distress noted, bed alarm on, side rails up x's3 and safety brakes engaged, call light within easy reach, pt. is SR on equipment monitor phototypesetting. pt appears to be sating well on room air- no distress noted, pt. appears to be resting comfortably, Rt. AC 20G IV intact and patent, safety measures continued, will continue with plan of care. Per endorsement pt. being discharged to home- son will burr picker mother.
[2020-06-25 20:00] VITALS: BP 134/83
--- NOTE | 2020-06-25 20:20 | NUR ---
NURSE NOTES: took pt. down to lobby where joseph Leslie is picking her up- pt. remains stable- pt. discharged. IV line removed and bus monitor removed.
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
--- NOTE | 2020-07-01 22:16 | Coder Physician Query ---
Clarification is required for compliance, coding accuracy, and to reflect severity of illness for this patient Dear Dr. CHRISTINE Date: 07/01/20 Wood Piler/CDS' Name: OTTONIELANDREA History of Present Illness: Ms. Gan is a 69-year-old woman who developed dyspnea on exertion and substernal pressure. Because of an electrocardiographic change with inverted T waves in the inferolateral leads, Ms. Gan was admitted for further evaluation and treatment. Hospital Course: Details of the history and physical examination are per the dictation June 24, 2020. Despite initially normal troponin values, because the electrocardiographic changes suggestive of subendocardial ischemia, Ms. Gan was admitted for further evaluation and treatment. She was placed on telemetry and had serial troponin testing with values remaining in the normal range. She was seen in cardiology consultation by Dr. Sofia, who recommended that a nuclear medicine stress test be done prior to discharge. On the day of discharge, the nuclear medicine stress test was done with a nonischemic scan and electrocardiographic response. Post stress ejection fraction was estimated to be 71%. Despite the negative result, because of the electrocardiographic changes there is concern for underlying coronary artery disease. Discharge Diagnoses: 1. Chest pain with inverted T waves in inferolateral leads of recent onset, resolved. No evidence of coronary ischemia by nuclear medicine stress test. Please document the suspected etiology of Chest Pain: [] Acute myocardial infarction [] Acute Coronary Syndrome [] Pericarditis [] Anxiety [] Cancer [] Pneumonia [] Costochondritis [] Pneumothorax [] GERD/Esophagitis [] Pulmonary embolism [] Other: [] Unable to determine Physician signature Date Please also document in your Progress Notes and/or Discharge Summary and indicate if the condition was present on admission. DAR
== END 2020-06-25 20:26 | disposition home or self-care (01) | DRG 313 ==
LOC: EMR 10:45 → 2W 12:04 → EDBEDREQ 06-25 02:26
DX: R07.9 Chest pain, unspecified (principal); I10 Essential (primary) hypertension; M48.00 Spinal stenosis, site unspecified; E78.5 Hyperlipidemia, unspecified; Z88.6 Allergy status to analgesic agent; Z86.19 Personal history of other infectious and parasitic diseases; G89.4 Chronic pain syndrome; J44.9 Chronic obstructive pulmonary disease, unspecified; F17.200 Nicotine dependence, unspecified, uncomplicated; Z87.891 Personal history of nicotine dependence
CPT/HCPCS: 36415; 71045; 78452; 80053; 83880; 84484; 85025; 85379; 93005; 93017; 96374; 99285; J2785; U0002

== ENCOUNTER 2020-07-18 08:15 | Day surgery (SDC) | payer MEDICARE, MEDICAID ==
[~2020-07-18] VITALS: Ht 157.5 cm; Wt 65.8 kg
[2020-07-18] VITALS (12 sets, daily range): BP systolic 119–141; BP diastolic 47–83
[~2020-07-18 08:15] MED LIST: ACETAMINOPHEN325 M1 ORAL; AMLODIPINE BESY10 MG ORAL; CYMBALTA30 MG ORAL; DOCUSATE SODIU100 MG ORAL
[2020-07-18] MEDS ORDERED: CENTRUM SILVER1 EAC4 PO (08:27)
[2020-07-18] MEDS ORDERED: CALCIUM500 M3 PO (08:27)
[2020-07-18] MEDS ORDERED: ATORVASTATIN CA20 MG ORAL (08:38)
[2020-07-18] MEDS ORDERED: LR 1000ml ONE (09:00)
[2020-07-18] MEDS ORDERED: Lidocaine 1% MPF 10mg/ml 5ml ONE (09:00)
[2020-07-18] MEDS ORDERED: Lidocaine 1% Plain 30 ml INJ ONE (09:01)
[2020-07-18] MEDS ORDERED: Labetalol 5mg/ml 20ml vial IV PRN (09:15)
[2020-07-18] MEDS ORDERED: fentaNYL 100 mcg/2 mL IV PRN (09:15)
[2020-07-18] MEDS ORDERED: Midazolam 2mg/2ml Inj IVP PRN (09:15)
[2020-07-18] MEDS ORDERED: DiphenhydrAMINE 50mg/ml Inj IVP PRN (09:15)
[2020-07-18] MEDS ORDERED: LR 1000ml 1,000 ML IVLG SCH (09:15)
[2020-07-18] MEDS ORDERED: Metoclopramide 10mg/2ml Inj IVP PRN (09:15)
[2020-07-18] MEDS ORDERED: Ketorolac 30mg Inj IV PRN ×2 (09:15)
[2020-07-18] MEDS ORDERED: LORazepam Inj 2mg/ml 1ml IV PRN (09:15)
[2020-07-18] MEDS ORDERED: Meperidine 25mg/1ml Inj (FOR RIGORS ONLY) IV PRN (09:15)
[2020-07-18] MEDS ORDERED: Atropine Sulfate 0.4mg/ml inj IVP PRN (09:15)
--- NOTE | 2020-07-18 09:21 | Anethesia Preoperative Eval ---
Anesthesia Pre-op PMH/ROS General Date of Evaluation: Jul 18, 2020 Time of Evaluation: 09:06 Anesthesiologist: Tiffanie ASA Score: ASA 3 Mallampati Score Class I : Soft palate, uvula, fauces, pillars visible Class II: Soft palate, uvula, fauces visible Class III: Soft palate, base of uvula visible Class IV: Only hard plate visible Mallampati Classification: Class II Surgeon: Yuli Diagnosis: Abd Pain Surgical Procedure: EGD/Colonoscopy Anesthesia History: none Family History: no anesthesia problems Allergies: Coded Allergies: CODEINE (Verified Allergy, Unknown, 02/29/20) Medications: see eMAR Patient NPO?: Yes Past Medical History Cardiovascular: Reports: HTN, other - HL Pulmonary: Reports: COPD Gastrointestinal/Genitourinary: Reports: GERD HEENT: Reports: cataract (L), cataract (R) PSxH Narrative: KELLEN, Back SX Anesthesia Pre-op Phys. Exam Physician Exam Last Vital Signs Date Time Temp Pulse Resp B/P (MAP) Pulse Ox O2 Delivery O2 Flow Rate FiO2 07/18/20 08:46 Room Air 07/18/20 08:38 97.5 98 18 141/83 98 Constitutional: NAD Neurologic: CN 2-12 intact Cardiovascular: RRR Respiratory: CTA Gastrointestinal: S/NT/ND Airway Exam Mallampati Score: Class II MO: full ROM: full Teeth: missing, intact Anesthesia Pre-op A/P Risk Assessment & Plan Assessment: ASA 3 Plan: TIVA Status Change Before Surgery: No Darell Moreno MD Jul 18, 2020 09:21
[2020-07-18] MEDS ORDERED: Midazolam 2mg/2ml Inj ONE (09:30)
--- NOTE | 2020-07-18 09:30 | Short Stay Surgery H&P ---
History of Present Illness History of Present Illness Chief Complaint se H&P HPI Desiree Gan is a 69 year old female who was admitted on for Abdominal Pain, Hx Of Colon Polyps Patient History Allergies: Coded Allergies: CODEINE (Verified Allergy, Unknown, 02/29/20) Medication History Scheduled Amlodipine Besylate* (Amlodipine Besylate*), 10 MG ORAL DAILY, (Reported) Atorvastatin Calcium* (Atorvastatin Calcium*), Unknown Dose ORAL BEDTIME, (Reported) Calcium Carbonate (Calcium), 500 MG PO DAILY, (Reported) Docusate Sodium* (Docusate Sodium*), 200 MG ORAL DAILY Mu-Vits-Min Th/Lycopene/Lutein (Centrum Silver Tablet), 1 EACH PO DAILY, (Reported) Scheduled PRN Acetaminophen* (Acetaminophen 325MG Tablet*), 650 MG ORAL Q4H PRN Discontinued Medications Duloxetine Hcl* (Cymbalta*), 20 MG ORAL DAILY PRN for For Anxiety, (Reported) Discontinued Reason: Pt stopped taking med Physical Exam Vital Signs Last Vital Signs Date Time Temp Pulse Resp B/P (MAP) Pulse Ox O2 Delivery O2 Flow Rate FiO2 07/18/20 08:46 Room Air 07/18/20 08:38 97.5 98 18 141/83 98 Plan Attestation Are the patient's medical conditions optimized for surgery? Reanna Roldan MD Jul 18, 2020 09:30
--- NOTE | 2020-07-18 09:31 | Pre-Procedure Note/Attestation ---
Pre-Procedure Note/Attestation Complete Prior to Procedure Planned Procedure: not applicable Indications for Procedure Pre-Operative Diagnosis: abd pain, h/o polyp Attestation I attest that I discussed the nature of the procedure; its benefits; risks and complications; and alternatives (and the risks and benefits of such alternatives), prior to the procedure, with the patient (or the patient's legal safety representative). I attest that, if there was a reasonable possibility of needing a blood transfusion, the patient (or the patient's legal safety representative) was given the [facility] standardized written summary, pursuant to the Jonathon Princess Blood Safety Act ([place] Health and Safety Code # 1645, as amended). I attest that I re-evaluated the patient just prior to the surgery and that there has been no change in the patient's H&P, except as documented below: Reanna Roldan MD Jul 18, 2020 09:31
--- NOTE | 2020-07-18 09:42 | Immediate Post-Op Evaluation ---
Immediate Post-Op Evalulation Immediate Post-Op Evalulation Procedure: EGD/Colonoscopy Date of Evaluation: Jul 18, 2020 Time of Evaluation: 10:27 Blood Products: 0 Estimated Blood Loss: 1 Urinary Output: 0 Blood Pressure Systolic: 135 Blood Pressure Diastolic: 83 Pulse Rate: 85 Respiratory Rate: 16 O2 Sat by Pulse Oximetry: 100 Temperature (Fahrenheit): 98.6 Pain Score (1-10): 2 Nausea: No Vomiting: No Complications 0 Patient Status: awake, reacts, patent, none Hydration Status: adequate Darell Moreno MD Jul 18, 2020 09:42
--- NOTE | 2020-07-18 09:43 | 48 Hour Post Anesthesia Eval ---
Post Anesthesia Evaluation Procedure: EGD/Colonoscopy Date of Evaluation: Jul 18, 2020 Time of Evaluation: 12:34 Blood Pressure Systolic: 133 0: 82 Pulse Rate: 81 Respiratory Rate: 18 Temperature (Fahrenheit): 98.6 O2 Sat by Pulse Oximetry: 99 Airway: patent Nausea: No Vomiting: No Pain Intensity: 2 Hydration Status: adequate Cardiopulmonary Status: Stable Mental Status/LOC: patient returned to baseline Follow-up Care/Observations: 0 Post-Anesthesia Complications: 0 Follow-up care needed: ready to discharge Darell Moreno MD Jul 18, 2020 09:43
--- NOTE | 2020-07-18 12:59 | Procedure Note ---
DATE OF PROCEDURE: 07/18/2020 GASTROENTEROLOGY PROCEDURE PROCEDURE: Upper gastrointestinal endoscopy with biopsy as well as colonoscopy with biopsy. SURGEON: Jeni Roldan MD. ANESTHESIOLOGIST: Darell Moreno MD. PRE-ENDOSCOPIC DIAGNOSES: 1. Abdominal pain. 2. History of colonic polyps. POST-ENDOSCOPIC DIAGNOSES: 1. A 1 to 2 cm hiatal hernia. 2. Mild nonerosive gastritis. 3. 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 4. Ill-defined ring-like projection in the mid esophagus 5. Normal terminal ileum about 5 cm. 6. Diminutive descending colon polyp status post biopsy removal. 7. Mild to moderate internal hemorrhoids. DESCRIPTION OF PROCEDURE: The procedure, its risks, indications, alternatives, and possible complications including but not limited to bleeding, infection, perforation, , and anesthesia complications were explained to the patient and informed consent was obtained. The patient was then sedated in the left lateral decubitus position. A diagnostic upper endoscope was introduced into oropharynx and advanced to the duodenum without difficulty. The endoscope was then gradually withdrawn and the mucosa examined carefully. Findings are as listed above. Random biopsies of the duodenum, antrum, and mid esophagus were sent to pathology for review. Thereafter a rectal exam was done and the colonoscope was introduced into the rectum and advanced to 5 cm into the terminal ileum. The colonoscope was then gradually withdrawn and the mucosa examined carefully. Examination of the colon mucosa revealed findings as listed above. Diminutive polyp in the proximal descending colon was removed with biopsy forceps. The patient was sent to recovery in good condition. COMPLICATIONS: None. RECOMMENDATIONS: 1. Followup biopsy results. 2. Outpatient followup. 3. Reflux precautions. 4. Consider treatment of Helicobacter pylori if positive on biopsy . Thank you for asking me to participate in the care of this patient. Jeni Roldan M.D. DR: Lito JOB#: [id number] CC: Maximino Cordoba M.D.; Fax#: [phone] JENI ROLDAN M.D. ; FAX#: [phone] [facility]OSPITALFacundo
--- NOTE | 2020-07-19 22:34 | Brief Operative Note ---
Immediate Post Operative Note Operative Note Chief Complaint: abd pain h/o polyp Pre-op Diagnosis: abd pain, h/o polyp Procedure: esophagogastroduodenoscopy colon Surgeon: romana Specimen: yes Complications: none Fluids: given Implant(s) used?: No Reanna Roldan MD Jul 19, 2020 22:34
--- NOTE | 2020-07-19 22:34 | Endoscopy Procedure Note ---
Endoscopy Procedure Note General Indication for Procedure: abd pain, h/o polyp Operative Findings/Diagnosis: see dictation Specimen: yes Pt Tolerated Procedure Well: Yes Estimated Blood Loss: none Anesthesia Anesthesiologist: see report Anesthesia: moderate sedation Medications Medication Given: see anesthesia record Inserted Devices Implant(s) used?: No GI Core Measures 50 yrs or older w/o bx or poly: No 10yrs. F/U recommended: No If not recommended, why?: Above average risk 18 years or older w/prev. colo: Yes <3yrs. since last colonoscopy: No Med reason:<3 yrs.: System Reason:<3 yrs.: Last colonoscopy >= to 3yrs: Yes Reanna Roldan MD Jul 19, 2020 22:34
== END 2020-07-18 12:40 | disposition home or self-care (01) ==
LOC: GAS 08:15
DX: K44.9 Diaphragmatic hernia without obstruction or gangrene (principal); Q43.9 Congenital malformation of intestine, unspecified; K29.50 Unspecified chronic gastritis without bleeding; D12.4 Benign neoplasm of descending colon; B96.81 Helicobacter pylori [H. pylori] as the cause of diseases classified elsewhere; K64.8 Other hemorrhoids; Z86.010 Personal history of colon polyps; Z88.6 Allergy status to analgesic agent; Z79.899 Other long term (current) drug therapy; I10 Essential (primary) hypertension; K21.9 Gastro-esophageal reflux disease without esophagitis; J44.9 Chronic obstructive pulmonary disease, unspecified
CPT/HCPCS: 43239; 45380; 94003; J2001; J2250; J2704; J7120; U0002; U0004; 94150